=== PATIENT | male | born 1935 | race Caucasian/White ===

== ENCOUNTER 2017-09-16 17:54 | Inpatient (IN) | payer MEDICARE, BC ==
[~2017-09-16] VITALS: Ht 180.3 cm; Wt 72.7 kg
--- NOTE | 2017-09-16 18:10 | EKG ---
[address] [address] Test Date: 2017-09-16 Test Time: 18:05:51 Pat Name: RICHIE PORTER Department: Room: Gender: M Ultrasonographer: : 1935 Requested By: DIONNE FU Order Number: [id number] Reading MD: Measurements Intervals [place] Rate: 79 P: 42 FL: 180 QRS: 42 QRSD: 94 T: 62 QT: 364 QTc: 423 Interpretive Statements SINUS RHYTHM QRS(T) CONTOUR ABNORMALITY CONSIDER ANTEROSEPTAL MYOCARDIAL DAMAGE POSSIBLY ABNORMAL ECG RI6.01 No previous ECG available for comparison
[2017-09-16 18:42] LABS: BASO # 0.1 x10^3/uL (0.0-0.2); BASO % 1 % (0-3); EOS % 0 % (0-3); HEMATOCRIT 40.1 % (39.0-53.0); HEMOGLOBIN 13.3 g/dL (13.0-17.5); LYMPH # 1.2 x10^3/uL (1.0-4.8); LYMPH % 11 % (24-48); MEAN CORPUSCULAR HEMOGLOBIN 28 pg (25-35); MEAN CORPUSCULAR HGB CONC 33 g/dL (31-37); MEAN CORPUSCULAR VOLUME 85 fL (79-100); MONO # 0.7 x10^3/uL (0.0-1.1); MONO % 6 % (0-9); NEUT # 9.4 x10^3uL (1.8-7.7); NEUT % 83 % (31-73); PLATELET COUNT 298 x10^3/uL (140-400); RED BLOOD COUNT 4.74 x10^6/uL (4.30-5.70); RED CELL DISTRIBUTION WIDTH 15.9 % (11.5-14.5); WHITE BLOOD COUNT 11.4 x10^3/uL (4.0-11.0)
[2017-09-16 18:52] LABS: ALBUMIN 3.2 g/dL (3.4-5.0); ALBUMIN/GLOBULIN RATIO 0.7 (1.0-1.7); CALCIUM 10.1 mg/dL (8.5-10.1); CREATININE 2.5 mg/dL (0.7-1.3); GFR 24.8; MAGNESIUM 1.6 mg/dL (1.8-2.4); POTASSIUM 4.9 mmol/L (3.5-5.1); TOTAL BILIRUBIN 0.5 mg/dL (0.2-1.0)
--- NOTE | 2017-09-16 19:13 | PHYS DOC ---
Past History Past Medical History: CAD, Depression, Diabetes, Hypertension, Hypothyroid Past Surgical History: Other Alcohol Use: None Drug Use: None Adult General Chief Complaint Chief Complaint: PSYCH EVALUATION HPI HPI 82-year-old male with a history of severe depression which has required shelter placement now sent for evaluation of behavioral difficulties. By staff report patient will not get out of bed and is refusing to cooperate with his care. No recent illness or injuries. Patient has no specific complaints Review of Systems Review of Systems Constitutional: Denies fever or chills [] Eyes: Denies change in visual acuity, redness, or eye pain [] HENT: Denies nasal congestion or sore throat [] Respiratory: Denies cough or shortness of breath [] Cardiovascular: No additional information not addressed in HPI [] GI: Denies abdominal pain, nausea, vomiting, bloody stools or diarrhea [] : Denies dysuria or hematuria [] Musculoskeletal: Denies back pain or joint pain [] Integument: Denies rash or skin lesions [] Neurologic: Denies headache, focal weakness or sensory changes [] Endocrine: Denies polyuria or polydipsia [] All other systems were reviewed and found to be within normal limits, except as documented in this note. Allergies Allergies Allergies Coded Allergies Type Severity Reaction Last Updated Verified Sulfa (Sulfonamide Antibiotics) Allergy Unknown 09/16/17 Yes Physical Exam Physical Exam Chronically weak appearing elderly male in no acute distress. He is alert and communicative. Mucous membranes moist supple neck Constitutional: no acute distress, non-toxic appearance. [] HENT: Normocephalic, atraumatic, bilateral external ears normal, oropharynx moist, no oral exudates, nose normal. [] Eyes: PERRLA, EOMI, conjunctiva normal, no discharge. [] Neck: Normal range of motion, no tenderness, supple, no stridor. [] Cardiovascular:Heart rate regular rhythm, no murmur [] Lungs & Thorax: Bilateral breath sounds clear to auscultation [] Abdomen: Bowel sounds normal, soft, no tenderness, no masses, no pulsatile masses. [] Skin: Warm, dry, no erythema, no rash. [] Back: No tenderness, no CVA tenderness. [] Extremities: No tenderness, no cyanosis, no clubbing, ROM intact, no edema. [] Neurologic: Alert and oriented X 3, normal motor function the patient is generally weak without focal deficit, normal sensory function, no focal deficits noted. [] Psychologic: Flat affect and depressed mood Current Patient Data Vital Signs Vital Signs Date Time Temp Pulse Resp B/P (MAP) Pulse Ox O2 Delivery O2 Flow Rate FiO2 09/16/17 18:05 98.2 76 16 94 Room Air Lab Results Laboratory Tests Test 09/16/17 18:15 White Blood Count 11.4 x10^3/uL (4.0-11.0) H Red Blood Count 4.74 x10^6/uL (4.30-5.70) Hemoglobin 13.3 g/dL (13.0-17.5) Hematocrit 40.1 % (39.0-53.0) Mean Corpuscular Volume 85 fL (79-100) Mean Corpuscular Hemoglobin 28 pg (25-35) Mean Corpuscular Hemoglobin Concent 33 g/dL (31-37) Red Cell Distribution Width 15.9 % (11.5-14.5) H Platelet Count 298 x10^3/uL (140-400) Neutrophils (%) (Auto) 83 % (31-73) H Lymphocytes (%) (Auto) 11 % (24-48) L Monocytes (%) (Auto) 6 % (0-9) Eosinophils (%) (Auto) 0 % (0-3) Basophils (%) (Auto) 1 % (0-3) Neutrophils # (Auto) 9.4 x10^3uL (1.8-7.7) H Lymphocytes # (Auto) 1.2 x10^3/uL (1.0-4.8) Monocytes # (Auto) 0.7 x10^3/uL (0.0-1.1) Eosinophils # (Auto) 0.0 x10^3/uL (0.0-0.7) Basophils # (Auto) 0.1 x10^3/uL (0.0-0.2) Sodium Level 139 mmol/L (136-145) Potassium Level 4.9 mmol/L (3.5-5.1) Chloride Level 101 mmol/L (98-107) Carbon Dioxide Level 23 mmol/L (21-32) Anion Gap 15 (6-14) H Blood Urea Nitrogen 48 mg/dL (8-26) H Creatinine 2.5 mg/dL (0.7-1.3) H Estimated GFR (Cockcroft-Gault) 24.8 BUN/Creatinine Ratio 19 (6-20) Glucose Level 138 mg/dL (70-99) H Calcium Level 10.1 mg/dL (8.5-10.1) Magnesium Level 1.6 mg/dL (1.8-2.4) L Total Bilirubin 0.5 mg/dL (0.2-1.0) Aspartate Amino Transferase (AST) 40 U/L (15-37) H Alanine Aminotransferase (ALT) 39 U/L (16-63) Alkaline Phosphatase 89 U/L (46-116) Total Protein 8.0 g/dL (6.4-8.2) Albumin 3.2 g/dL (3.4-5.0) L Albumin/Globulin Ratio 0.7 (1.0-1.7) L EKG EKG Normal sinus rhythm at 79 normal axis no STEMI interpreted by me[] Radiology/Procedures Radiology/Procedures [] Course & Med Decision Making Course & Med Decision Making Pertinent Labs and Imaging studies reviewed. (See chart for details) Patient with behavioral difficulties and exacerbation of severe depression. Here for medical clearance for psychiatric senior behavioral health admission. His exam is unremarkable. Necessary labs pending. Patient generally weak and chronically debilitated but clinically stable. Creatinine 2.5 up from 1.2 on July 08 and 1.4 on September 09. Will admit patient for acute renal injury and hydration. Case discussed with Dr. Vanessa , he is aware the history and findings accepts the patient for inpatient admission his service. [] Dragon Disclaimer Dragon Disclaimer This electronic medical record was generated, in whole or in part, using a voice recognition dictation system. Departure Departure: Impression: Primary Impression: Severe depression Additional Impressions: Acute renal injury Dehydration Disposition: ADMITTED INPATIENT Admitting Physician: Elgin Vanessa, Other Condition: STABLE Referrals: KIKE SHARIF DO (PCP) Problem Qualifiers LADARIUS HUMPHREYS MD September 16, 2017 19:13
[2017-09-16 19:33] LABS: BILIRUBIN,URINE NEG (NEG); CLARITY,URINE CLEAR; COLOR,URINE YELLOW; GLUCOSE,URINE NEG (NEG); NITRITE,URINE NEG (NEG); UROBILINOGEN,URINE 0.2 mg/dL (0.2 mg/dL)
[2017-09-16 19:39] LABS: BACTERIA,URINE 0 /HPF (0-FEW); RBC,URINE 20-40 /HPF (0-2); SQUAMOUS EPITHELIAL CELL,UR FEW /LPF; WBC,URINE OCC /HPF (0-4)
[2017-09-16] MEDS ORDERED: IV NORMAL SALINE 1,000ML 1,000 ML IV ONE ×3 (20:45→21:00)
--- NOTE | 2017-09-16 23:25 | NUR ---
Pt admitted from ER to [facility] to room [address] [facility], accompanied by EMS and rn staff. Pt transferred from [facility] to bed x3 assist. Pt is a resident of [facility] in [place]. Pt has been having increased falls at assisted living facility and is now refused to get out of bed in fear of falling again and increased depression. Pt with healing abrasion to left liriano and varies dry scabs r/t falls. Pt was to go to [facility] for major depression but was found to have a elevated creat=2.5, plan is for gentle hydration tonight and follow up on labs in AM. VSS. Pt is A&Ox3, pleasant and interactive. Pt denies pain currently. Health history and home medications per MT, copies in chart. PT/OT ordered and CM consulted. SCD's per protocol for VTE. Bed in lowest position and alarm in place. Pt was given written information regarding hospital policies, unit procedures and contact persons. Call light within reach. Valuables were checked and logged and left in room with patient. Box lunch given.
[2017-09-16 23:36] VITALS: BP 135/70
[2017-09-17] MEDS ORDERED: MAGNESIUM HYDROXIDE 2,400 MG/30 ML ORAL.SUSP. PO PRN (02:15)
[2017-09-17] MEDS ORDERED: ACETAMINOPHEN 500 MG TABLET PO PRN (02:15)
[2017-09-17] MEDS ORDERED: METF10003 PO (02:46)
[2017-09-17] MEDS ORDERED: ACET500T68 PO (02:46)
[2017-09-17] MEDS ORDERED: CITA40TA12 PO (02:46)
[2017-09-17] MEDS ORDERED: ALFU10TA3 PO (02:46)
[2017-09-17] MEDS ORDERED: IBUP600T16 PO (02:46)
[2017-09-17] MEDS ORDERED: MAGN400O7 PO (02:46)
[2017-09-17] MEDS ORDERED: GLIM1TAB2 PO (02:46)
[2017-09-17] MEDS ORDERED: LOPE2TAB27 PO (02:46)
[2017-09-17] MEDS ORDERED: PSYL575P4 PO (02:46)
[2017-09-17] MEDS ORDERED: ATOR40TA59 PO (02:46)
[2017-09-17] MEDS ORDERED: HYDR28CR62 TP (02:46)
[2017-09-17] MEDS ORDERED: LISI10TA2 PO (02:46)
[2017-09-17] MEDS ORDERED: LEVO100T5 PO (02:46)
[2017-09-17] MEDS ORDERED: MULT1TAB52 PO (02:46)
[2017-09-17] MEDS ORDERED: FENO200C PO (02:46)
[2017-09-17] MEDS ORDERED: HYDROCORTISONE 1% TOPICAL CREAM 30GM TUBE. TP PRN (03:00)
[2017-09-17] MEDS ORDERED: LOPERAMIDE 2 MG CAPSULE PO PRN (03:00)
[2017-09-17 06:20] VITALS: BP 154/74
[2017-09-17] MEDS: LEVOTHYROXINE 100 MCG TABLET PO SCH (07:01)
[2017-09-17 07:12] LABS: ALBUMIN 2.7 g/dL (3.4-5.0); ALBUMIN/GLOBULIN RATIO 0.7 (1.0-1.7); CALCIUM 9.1 mg/dL (8.5-10.1); CREATININE 1.8 mg/dL (0.7-1.3); GFR 36.2; POTASSIUM 4.1 mmol/L (3.5-5.1); TOTAL BILIRUBIN 0.5 mg/dL (0.2-1.0); TOTAL PROTEIN 6.8 g/dL (6.4-8.2)
[2017-09-17 07:21] LABS: BASO % 0 % (0-3); EOS # 0.1 x10^3/uL (0.0-0.7); EOS % 2 % (0-3); HEMATOCRIT 34.5 % (39.0-53.0); HEMOGLOBIN 11.5 g/dL (13.0-17.5); LYMPH # 1.3 x10^3/uL (1.0-4.8); LYMPH % 18 % (24-48); MEAN CORPUSCULAR HEMOGLOBIN 28 pg (25-35); MEAN CORPUSCULAR HGB CONC 33 g/dL (31-37); MEAN CORPUSCULAR VOLUME 85 fL (79-100); MONO # 0.5 x10^3/uL (0.0-1.1); MONO % 7 % (0-9); NEUT # 5.4 x10^3uL (1.8-7.7); NEUT % 73 % (31-73); PLATELET COUNT 262 x10^3/uL (140-400); RED BLOOD COUNT 4.07 x10^6/uL (4.30-5.70); RED CELL DISTRIBUTION WIDTH 15.6 % (11.5-14.5); WHITE BLOOD COUNT 7.4 x10^3/uL (4.0-11.0)
[2017-09-17] MEDS: PSYLLIUM SEED (WITH SUGAR) PACKET. PO SCH ×2 (08:00→09:33)
[2017-09-17] MEDS ORDERED: IBUPROFEN 600 MG PO SCH (09:00)
[2017-09-17] MEDS ORDERED: LISINOPRIL 10 MG TABLET PO SCH (09:00)
[2017-09-17] MEDS: GLIMEPIRIDE 2 MG TABLET PO SCH (09:33)
[2017-09-17] MEDS: CITALOPRAM 20 MG TABLET. PO SCH (09:34)
[2017-09-17] MEDS: MULTIVITAMIN with MINERAL TABLET. PO SCH (09:35)
[2017-09-17] MEDS: FENOFIBRATE NANOCRYSTALLIZED 145 MG TABLET PO SCH (09:35)
[2017-09-17 12:24] VITALS: BP 113/66
[2017-09-17] MEDS: IV NORMAL SALINE 1,000ML 1,000 ML IV SCH ×2 (15:04→20:50)
--- NOTE | 2017-09-17 17:25 | HP ---
ADMIT DATE: 09/16/2017 HISTORY OF PRESENT ILLNESS: The patient is an 82-year-old male patient, a resident at [facility] ER, who apparently has severe depression, refusing to get up to the restroom, has lost about 25 pounds in 9 months, constantly worrying about falling. An outpatient psychiatric intervention was attempted with Keyla without much improvement and he was basically brought to the Emergency Room for medical clearance before admitting him to [facility]. Unfortunately, he was found to have acute kidney injury. His creatinine was 2.5 and it was only 1.2 about a month ago and therefore, he was admitted to [address] [place] [address] for rehydrating him before transferring him upstairs for inpatient psychiatric stabilization. The patient himself does not really give a lot of information. PAST MEDICAL HISTORY: His past medical history is significant for type 2 diabetes, chronic kidney disease, chronic constipation, benign prostatic hypertrophy, hyperlipidemia, hypothyroidism, and hypertension. PAST SURGICAL HISTORY: Unremarkable. SOCIAL HISTORY: He is . His about 10 years ago. He has been living in an assisted living for about 8 years, according to him. He has 2 daughters and grandchildren and grand grandchildren. 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 He does not smoke, drink alcohol or use any recreational drugs. ALLERGIES: HE IS ALLERGIC TO SULFA DRUGS. MEDICATIONS: He is currently on following medications: He is on alfuzosin 10 mg once a day, fenofibrate 200 mg daily, atorvastatin calcium 40 mg at bedtime, lisinopril 10 mg once a day, ibuprofen 600 mg 3 times a day, acetaminophen 600 mg every 6 hours, citalopram hydrobromide for Celexa 40 mg daily, loperamide 2 mg 4 times a day as needed, magnesium hydroxide for Milk of Magnesia 30 mL p.o. daily p.r.n. for constipation, psyllium seed with sugar for Metamucil powder 5 grams p.o. daily with breakfast, metformin 1000 mg twice a day and glimepiride half mg once a day, levothyroxine sodium 100 mcg once a day, hydrocortisone/aloe vera ____ cream apply topically twice a day for eczema, dry skin, and multivitamin 1 tablet once a day. REVIEW OF SYSTEMS: As per history of present illness. PHYSICAL EXAMINATION: GENERAL: On arrival to the Emergency Room, he looked well and was clearly in no apparent respiratory distress, pale, cachectic, but no jaundice, cyanosis, or thyromegaly. No jugular venous distension. No lower limb edema. VITAL SIGNS: His heart rate was 76, blood pressure was 125/65, temperature was 98.2, respiratory rate was 16, and oxygen saturation was 94%. HEAD, EYES, EARS, NOSE AND THROAT: Showed normocephalic, atraumatic. NECK: Supple. HEART: Showed normal first and second heart sounds with no gallop, rub or murmur. CHEST: Clear to auscultation. No crepitation or rhonchi. ABDOMEN: Distended, soft, nontender. No guarding or rigidity. No organomegaly. Hernial orifice is intact. Bowel sounds normal. NEUROLOGIC: He is awake, alert, responding appropriately. His cranial nerves are intact. EXTREMITIES: He moves extremities without difficulty, although he is mostly bedbound, chair bound. Apparently, he has morbid fear of walking or falling. LABORATORY DATA: While in the Emergency Room, he has lab work done, which showed that his white cell count was 11,400, hemoglobin 13.3, hematocrit 40, MCV 85 and platelet count 298,000. His chemistry showed a serum sodium 139, potassium 4.9, chloride 101, bicarbonate 23, anion gap of 15, BUN 48, creatinine 2.5, estimated GFR was 24 mL per minute. His glucose was 138, calcium was 10.1, magnesium was 1.6. Total bilirubin, AST, ALT, alkaline phosphatase were normal. Total protein was 8, albumin was 3.2. Urinalysis showed the urine was yellow, clear with the pH of 5, specific gravity 1.020. There is small amount of protein, negative for glucose and ketones, large amount of blood, negative for nitrite and bilirubin, and negative leukocyte esterase. There were 20-40 RBCs, occasional WBCs, and no bacteria. IMPRESSION AND PLAN: So, in summary, this is an 82-year-old male patient, a resident in assisted living at [facility] ER, who was brought to the Emergency Room for medical clearance before he was admitted to [facility] on account of severe depression, refusing to get up to use the restroom, has lost about 25 pounds in 9 months, constantly worrying about falling and these symptoms started about 6 months ago, has failed outpatient psychiatric stabilization and he was started on Celexa and therefore he was evaluated in the Emergency Room; however, he was found to have [id number] kidney injury. He was clearly markedly dehydrated. He has also mild leukocytosis, hypomagnesemia, and hypercalcemia. Therefore, a decision was made to admit him to [address] [place] [address] to treat his normal kidney function first. Once stabilized medically, he would be transferred upstairs to [facility] for inpatient psychiatric stabilization. CAREN ROMO MD DR: MAYA/maxx JOB#: [id number] / [id number]
[2017-09-17 18:05] VITALS: BP 121/71
--- NOTE | 2017-09-17 18:55 | PN ---
DATE: 09/17/2017 SUBJECTIVE: The patient has been sitting comfortably in his chair in no apparent distress. On questioning him, he denied any complaint; however, the nursing staff stated he continued to be extremely worried about standing or walking. We did consult physical and occupational therapy to evaluate him as his kidney function is abnormal. His metformin and ibuprofen were held last night; however, his lisinopril was continued. PHYSICAL EXAMINATION: GENERAL: When I saw him this afternoon, he looked well and was clearly in no apparent distress, was pale, but no jaundice, cyanosis, or thyromegaly. No jugular venous distension. No limb edema. VITAL SIGNS: Heart rate was 61, blood pressure was 113/66, temperature was 97.6, respiratory rate 22 and oxygen saturation was 94%. HEAD, EARS, NOSE AND THROAT: Normocephalic, atraumatic. NECK: Supple. HEART: Showed normal first and second heart sounds with no gallop, rub or murmur. CHEST: Clear to auscultation. No crepitation or rhonchi. ABDOMEN: Distended, soft, nontender. No guarding or rigidity. No organomegaly. Hernial orifices intact. Bowel sounds normal. NEUROLOGIC: He was demented, but without any obvious lateralizing sign. All his cranial nerves are intact. He moves extremities without difficulty. He has marked muscle wasting and weakness. His intake over the last 24 hours was 1100, no output was recorded. LABORATORY DATA: As of this morning showed a serum sodium 140, potassium 4.1, chloride 104, bicarbonate 24, anion gap of 12, BUN 47, creatinine 1.8, estimated GFR was 36 mL per minute. His glucose was 93, calcium was 9.1. Total bilirubin, AST, ALT, alkaline phosphatase were normal. Total protein was 6.8, albumin was 2.7. His white cell count was 7400, hemoglobin 11.5, hematocrit 34.5, MCV 85 and platelet count 262,000. ASSESSMENT: This is an 82-year-old male patient, resident in assisted living with severe depression with loss, was found to be dehydrated with: 1. [id number] kidney injury, hypomagnesemia, hypercalcemia. He has also had type 2 diabetes, hypertension, hypothyroidism. PLAN: To continue the IV fluid today and overnight and hopefully repeat his labs tomorrow and ____ kidney function is back to baseline on his most recent lab work available showed his creatinine was 1.2 mg/dL on 07/08/2017. CAREN ROMO MD DR: MAYA/maxx JOB#: [id number] / [id number]
[2017-09-17 19:40] VITALS: BP 130/70
--- NOTE | 2017-09-17 20:12 | PDOC ---
Exam Note: Percy Note: Please also refer to the separate dictated note~for this date of service dictated separately.~Patient seen individually. Discussed the patient with Nursing staff reviewed the chart.~Reviewed interim history and current functioning. Reviewed vital signs,~Labs/ Radiology~and current medications noted below. Continue current treatment with the changes noted in the dictated addendum note Assessment: Vital Signs: Vital Signs Date Time Temp Pulse Resp B/P (MAP) Pulse Ox O2 Delivery O2 Flow Rate FiO2 09/17/17 19:40 98.1 57 16 130/70 (90) 93 Room Air I&O Intake and Output 09/17/17 07:00 Intake Total 1099 ml Balance 1099 ml Intake Oral 360 ml IV Total 739 ml # Voids 3 Labs: Laboratory Tests Test 09/17/17 00:40 09/17/17 06:31 09/17/17 07:47 09/17/17 12:00 Nasal Screen MRSA (PCR) Negative (Negative) White Blood Count 7.4 x10^3/uL (4.0-11.0) Red Blood Count 4.07 x10^6/uL (4.30-5.70) L Hemoglobin 11.5 g/dL (13.0-17.5) L Hematocrit 34.5 % (39.0-53.0) L Mean Corpuscular Volume 85 fL (79-100) Mean Corpuscular Hemoglobin 28 pg (25-35) Mean Corpuscular Hemoglobin Concent 33 g/dL (31-37) Red Cell Distribution Width 15.6 % (11.5-14.5) H Platelet Count 262 x10^3/uL (140-400) Neutrophils (%) (Auto) 73 % (31-73) Lymphocytes (%) (Auto) 18 % (24-48) L Monocytes (%) (Auto) 7 % (0-9) Eosinophils (%) (Auto) 2 % (0-3) Basophils (%) (Auto) 0 % (0-3) Neutrophils # (Auto) 5.4 x10^3uL (1.8-7.7) Lymphocytes # (Auto) 1.3 x10^3/uL (1.0-4.8) Monocytes # (Auto) 0.5 x10^3/uL (0.0-1.1) Eosinophils # (Auto) 0.1 x10^3/uL (0.0-0.7) Basophils # (Auto) 0.0 x10^3/uL (0.0-0.2) Sodium Level 140 mmol/L (136-145) Potassium Level 4.1 mmol/L (3.5-5.1) Chloride Level 104 mmol/L (98-107) Carbon Dioxide Level 24 mmol/L (21-32) Anion Gap 12 (6-14) Blood Urea Nitrogen 47 mg/dL (8-26) H Creatinine 1.8 mg/dL (0.7-1.3) H Estimated GFR (Cockcroft-Gault) 36.2 BUN/Creatinine Ratio 26 (6-20) H Glucose Level 93 mg/dL (70-99) Calcium Level 9.1 mg/dL (8.5-10.1) Total Bilirubin 0.5 mg/dL (0.2-1.0) Aspartate Amino Transferase (AST) 38 U/L (15-37) H Alanine Aminotransferase (ALT) 30 U/L (16-63) Alkaline Phosphatase 76 U/L (46-116) Total Protein 6.8 g/dL (6.4-8.2) Albumin 2.7 g/dL (3.4-5.0) L Albumin/Globulin Ratio 0.7 (1.0-1.7) L Glucose (Fingerstick) 99 mg/dL (70-99) 87 mg/dL (70-99) Test 09/17/17 16:31 09/17/17 19:43 Glucose (Fingerstick) 133 mg/dL (70-99) H 86 mg/dL (70-99) Current Medications: Meds: Current Medications Sodium Chloride 1,000 ml @ 150 mls/hr 1X ONCE IV Last administered on at 23:47; Start 09/16/17 at 20:45; Stop 09/17/17 at 03:24; Status DC Sodium Chloride 1,000 ml @ 1,000 mls/hr 1X ONCE IV Last administered on at 20:15; Start 09/16/17 at 21:00; Stop 09/16/17 at 21:59; Status DC Sodium Chloride 1,000 ml @ 1,000 mls/hr 1X ONCE IV ; Start 09/16/17 at 21:00; Stop 09/16/17 at 21:00; Status DC Levothyroxine Sodium (Synthroid) 100 mcg DAILY07 PO Last administered on at 07:01; Start 09/17/17 at 07:00 Lisinopril (Prinivil) 10 mg DAILY PO Last administered on 09/17/17at 09:35; Start 09/17/17 at 09:00; Stop 09/17/17 at 16:21; Status DC Magnesium Hydroxide (Milk Of Magnesia) 400 mg PRN DAILY PRN PO CONSTIPATION; Start 09/17/17 at 02:15; Stop 09/17/17 at 02:58; Status DC Acetaminophen (Tylenol) 1,000 mg PRN Q6HRS PRN PO PAIN; Start 09/17/17 at 02:15 Tamsulosin HCl (Flomax) 0.4 mg QHS PO ; Start 09/17/17 at 21:00 Atorvastatin Calcium (Lipitor) 40 mg QHS PO ; Start 09/17/17 at 21:00 Citalopram Hydrobromide (CeleXA) 40 mg DAILY PO Last administered on 09/17/17at 09:34; Start 09/17/17 at 09:00 Fenofibrate (Tricor) 145 mg DAILY PO Last administered on 09/17/17at 09:35; Start 09/17/17 at 09:00 Glimepiride (Amaryl) 0.5 mg DAILY PO Last administered on 09/17/17at 09:33; Start 09/17/17 at 09:00 Hydrocortisone (Cortaid) 1 eron PRN BID PRN TP ITCHING; Start 09/17/17 at 03:00 Non-Formulary Medication (Ibuprofen ) 600 mg TID PO ; Start 09/17/17 at 09:00; Status UNV Loperamide HCl (Imodium) 2 mg PRN QID PRN PO DIARRHEA; Start 09/17/17 at 03:00 Non-Formulary Medication (Metformin Hcl ) 1,000 mg BIDWMEALS PO ; Start at 08:00; Status UNV Multivitamins/ Calcium (Thera-M Plus) 1 tab DAILY PO Last administered on at 09:35; Start 09/17/17 at 09:00 Psyllium Hydrophilic Mucilloid (Metamucil) 1 pkt DAILYWBKFT PO ; Start 09/17/17 at 08:00 Sodium Chloride 1,000 ml @ 150 mls/hr Q6H40M IV Last administered on at 15:04; Start 09/17/17 at 14:45 Active Scripts Active Reported Multivitamins (Multivitamin) 1 Each Tablet 1 Tab PO DAILY LAST DOSE GIVEN: DATE: TIME: NEXT DOSE DUE: DATE: TIME: Metamucil Powder (Psyllium Seed (with Sugar)) 575 Gm Powder 5 Gm PO DAILYWBKFT LAST DOSE GIVEN: DATE: TIME: NEXT DOSE DUE: DATE: TIME: Milk Of Magnesia (Magnesium Hydroxide) 400 Mg/5 Ml Oral.susp 5 Ml PO PRN DAILY PRN LAST DOSE GIVEN: DATE: TIME: NEXT DOSE DUE: DATE: TIME: Loperamide (Loperamide Hcl) 2 Mg Tablet 2 Mg PO PRN QID PRN LAST DOSE GIVEN: DATE: TIME: NEXT DOSE DUE: DATE: TIME: Glimepiride 1 Mg Tablet 0.5 Mg PO DAILY LAST DOSE GIVEN: DATE: TIME: NEXT DOSE DUE: DATE: TIME: Cortizone-10 1% Creme (Hydrocortisone/Aloe Vera) 28 Gm Cream..g. 1 Eron TP BID PRN LAST DOSE GIVEN: DATE: TIME: NEXT DOSE DUE: DATE: TIME: Ibuprofen 600 Mg Tablet 600 Mg PO TID LAST DOSE GIVEN: DATE: TIME: NEXT DOSE DUE: DATE: TIME: Celexa (Citalopram Hydrobromide) 40 Mg Tablet 40 Mg PO DAILY LAST DOSE GIVEN: DATE: TIME: NEXT DOSE DUE: DATE: TIME: Alfuzosin Hcl 10 Mg Tab.er.24h 10 Mg PO DAILY LAST DOSE GIVEN: DATE: TIME: NEXT DOSE DUE: DATE: TIME: Lisinopril 10 Mg Tablet 10 Mg PO DAILY LAST DOSE GIVEN: DATE: TIME: NEXT DOSE DUE: DATE: TIME: Metformin Hcl 1,000 Mg Tablet 1,000 Mg PO BIDWMEALS LAST DOSE GIVEN: DATE: TIME: NEXT DOSE DUE: DATE: TIME: Levothyroxine Sodium 100 Mcg Tablet 100 Mcg PO DAILYAC LAST DOSE GIVEN: DATE: TIME: NEXT DOSE DUE: DATE: TIME: Fenofibrate (Fenofibrate,Micronized) 200 Mg Capsule 200 Mg PO DAILY08 LAST DOSE GIVEN: DATE: TIME: NEXT DOSE DUE: DATE: TIME: Atorvastatin Calcium 40 Mg Tablet 40 Mg PO HS LAST DOSE GIVEN: DATE: TIME: NEXT DOSE DUE: DATE: TIME: Acetaminophen 500 Mg Tablet 500-1,000 Mg PO PRN Q6HRS PRN LAST DOSE GIVEN: DATE: TIME: NEXT DOSE DUE: DATE: TIME: I have reviewed the current psychotropics carefully including drug interactions. Risk benefit ratio favors no change other than as noted in my dictated progress note. Diagnosis: Problems: (1) Dehydration (2) Severe depression (3) Acute renal injury (4) Anxiety disorder (5) Major depressive disorder, recurrent episode (6) Impulse control disorder (7) Mild cognitive impairment YASMIN DEXTER MD September 17, 2017 20:12
[2017-09-17] MEDS ORDERED: ATORVASTATIN CALCIUM 20 MG TABLET PO SCH (21:00)
[2017-09-17] MEDS ORDERED: TAMSULOSIN 0.4 MG CAP.ER.24H. PO SCH (21:00)
[2017-09-17 23:07] VITALS: BP 122/65
[2017-09-18] MEDS: IV NORMAL SALINE 1,000ML 1,000 ML IV SCH ×2 (04:39→10:45)
[2017-09-18 04:57] VITALS: BP 133/79
[2017-09-18] MEDS: LEVOTHYROXINE 100 MCG TABLET PO SCH (06:04)
[2017-09-18 06:54] LABS: CALCIUM 8.8 mg/dL (8.5-10.1); CREATININE 1.2 mg/dL (0.7-1.3); GFR 57.8
[2017-09-18] MEDS: PSYLLIUM SEED (WITH SUGAR) PACKET. PO SCH (08:00)
[2017-09-18] MEDS: FENOFIBRATE NANOCRYSTALLIZED 145 MG TABLET PO SCH (09:19)
[2017-09-18] MEDS: MULTIVITAMIN with MINERAL TABLET. PO SCH (09:19)
[2017-09-18] MEDS: CITALOPRAM 20 MG TABLET. PO SCH (09:19)
[2017-09-18] MEDS: GLIMEPIRIDE 2 MG TABLET PO SCH (09:19)
[2017-09-18 10:43] VITALS: BP 128/65
--- NOTE | 2017-09-18 14:33 | NUR ---
Pt ambulated short distance with PT/OT to the hallway then placed in the shower chair. Pt complained of fearfulness of falling. Pt reassured several times he is safe. Pt given shower, oral care given and pt transferred back to bed with 2 person assist. Will continue to monitor.
[2017-09-18 16:00] VITALS: BP 110/60
--- NOTE | 2017-09-18 17:55 | NUR ---
Report called to Frederick on [facility]. Pt up with 2 assist to wheelchair.
--- NOTE | 2017-09-18 18:01 | NUR ---
Frederick was informed in report that pt blood sugar was down to 54 at dinner time with no symptoms. Pt ate all of meal
--- NOTE | 2017-09-18 21:00 | DS ---
DATE OF DISCHARGE: 09/18/2017 HOSPITAL COURSE: The patient is an 82-year-old male patient, a resident at an assisted living facility, who was seen in the Emergency Room with a view of admitting him for medical clearance, to be admitted to [facility] on account of severe depression, refusing to get up to the bathroom, he lost about 25 pounds in 9 months. He is constantly worrying about falling and an outpatient psychiatric intervention was attempted with Keyla without much improvement; however, while in the Emergency Room, he was found to have acute kidney injury. His creatinine was 2.5 and his baseline about a month ago was only 1.2. He was also found to have hypercalcemia and hypomagnesemia, and therefore, he was started on IV fluid. I discontinued his lisinopril and the patient did very well. His creatinine came down nicely from 2.5-1.2 his baseline. His serum magnesium and calcium are normalized also and it was felt that the patient is medically stable to be transferred to [facility] for inpatient psychiatric stabilization. I did discontinue his lisinopril altogether and wrote an order to start him on amlodipine if need be if his systolic blood pressure is consistently more than 140 mmHg. PHYSICAL EXAMINATION: GENERAL: When I saw him this afternoon, he looked well and was clearly in no apparent respiratory distress, pale, but no jaundice, cyanosis or thyromegaly. No jugular venous distention. No limb edema. VITAL SIGNS: His heart rate was 82, blood pressure was 128/65, temperature was 98.6, respiratory rate was 20 and oxygen saturation was 97%. HEAD, EYES, EARS, NOSE AND THROAT: Normocephalic, atraumatic. NECK: Supple. HEART: Showed normal first and second heart sounds. No gallop, rub or murmur. CHEST: Clear to auscultation. No crepitation or rhonchi. ABDOMEN: Distended, soft, nontender. No guarding or rigidity. No organomegaly. All hernial orifice intact. Bowel sounds normal. NEUROLOGIC: He is awake, alert, responding appropriately. Cranial nerves intact. He moves extremities without difficulty; however, he is mostly bedbound. He is very unsteady and very fearful to walk. His intake over the last 24 hours was 3000, output was 150. LABORATORY DATA: This morning showed a serum sodium 137, potassium 4, chloride 105, bicarbonate 24, anion gap of 8, BUN 28, creatinine 1.2. Estimated GFR was 58 mL per minute. His glucose was 86, calcium was 8.8. TSH was 0.80. His white cell count was 7400, hemoglobin 11.5, hematocrit 35, MCV 85 and platelet count 262,000 with normal manual differential. DISCHARGE MEDICATIONS: He was transferred to [facility] to continue on atorvastatin, calcium 40 mg at bedtime, Flomax 0.4 mg at bedtime, multivitamin with calcium 1 tablet once a day, glimepiride 0.5 mg once a day, fenofibrate 145 mg once a day, citalopram hydrobromide 40 mg daily, psyllium for Metamucil 1 packet daily, levothyroxine 100 mcg once a day, loperamide 2 mg 4 times a day, hydrocortisone application twice a day, Tylenol 1000 mg every 6 hours. FINAL DISCHARGE DIAGNOSES: Acute kidney injury, resolved. His creatinine came down from 2.5-1.2 mg, hypomagnesemia, resolved, hypercalcemia resolved. Other medical problems include hypertension, hypothyroidism, hyperlipidemia, benign prostatic hypertrophy, type 2 diabetes. CAREN ROMO MD DR: MAYA/maxx JOB#: [id number] / [id number]
--- NOTE | 2017-09-19 00:24 | CONS ---
DATE OF CONSULTATION: 09/17/2017 This note covers the elements not covered in my initial note, 09/17/2017. The patient was seen individually evening of 09/17/2017. Discussed with the nursing staff, reviewed current and past records. IDENTIFYING DATA: The patient is an 82-year-old male seen in bed [address], [address] [place] [address], for a psychiatric consult requested by Dr. Vanessa after the patient was initially referred to us from the Assisted Living on account of severe depression, worsening at the [facility]. He was refusing to use the restroom, refusing to eat, lost 25 pounds in the past 9 months. He appeared hopeless, helpless, worthless, had failed outpatient psychiatric interventions. We did have accepted him for inpatient psychiatric stabilization on the Geriatric Psychiatry Unit, but he presented to the ER, was found to have acute kidney injury with a creatinine of 2.5, elevated from prior creatinine of 1.2, and he was admitted on [address] [place] [address] for Medical/Surgical unit for rehydration. I have been asked to see him from a psychiatric standpoint given his marked depression, weight loss, failure for outpatient psychiatric interventions. CHIEF COMPLAINT: "I have not been feeling hungry. Nothing matters." HISTORY OF PRESENT ILLNESS: The patient relates worsening symptoms of depression, feeling hopeless, helpless, worthless much worse since the of his . 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 for about 8 years. He has gradually gotten more depressed. Much of this is worsened in the recent past with weight loss, feeling helpless, hopeless, worthless, no interest in activities, apathy, and anhedonia, all of which failed outpatient psychiatric interventions. No clear symptoms of bipolar disorder. PAST PSYCHIATRIC HISTORY: As above. MEDICAL HISTORY: Diabetes mellitus, chronic kidney disease, chronic constipation, BPH, hyperlipidemia, hypothyroidism, and hypertension. ALLERGIES: SULFA. CURRENT PSYCHOTROPICS: MRAD was reviewed. FAMILY HISTORY: Noncontributory. SOCIAL HISTORY: No alcohol or drug abuse history is noted. MENTAL STATUS EXAMINATION: The patient was seen individually evening of 09/17/2017. He is oriented to himself, date and situation. Speech has some latency, coherent. Abstraction fair, computation somewhat impaired, language function intact. Mood is depressed. Affect is mood congruent. Denies active suicidal ideation, somewhat ruminative. Attention span short. Language function intact. LABORATORY DATA: Reviewed. IMPRESSION: Major depressive disorder, recurrent, severe; anxiety disorder, unspecified; cognitive disorder, unspecified. Rest as above. PLAN: From a psychiatric standpoint, would not recommend any change until he is medically stabilized and we can reassess. We may consider having him come to the Geriatric Psychiatry Unit once he is medically stable. Dr. Vanessa, thank you for the opportunity to participate in your patient's care. We will follow with you. YASMIN DEXTER MD DR: NISREEN/maxx JOB#: [id number] / [id number]
[2017-09-19 02:07] LABS: HEMOGLOBIN A1C 6.4 % (4.8-5.6)
== END 2017-09-18 18:05 | DRG 683 ==
LOC: ER 17:54 → 1 SOUTH 21:48
PROVIDERS: ADMIT Internal Medicine; ATTEND Internal Medicine
DX: N17.0 Acute kidney failure with tubular necrosis (principal); F33.9 Major depressive disorder, recurrent, unspecified; E11.22 Type 2 diabetes mellitus with diabetic chronic kidney disease; E86.0 Dehydration; E83.52 Hypercalcemia; E03.9 Hypothyroidism, unspecified; E83.42 Hypomagnesemia; I25.10 Atherosclerotic heart disease of native coronary artery without angina pectoris; Z88.2 Allergy status to sulfonamides; N40.0 Benign prostatic hyperplasia without lower urinary tract symptoms; I12.9 Hypertensive chronic kidney disease with stage 1 through stage 4 chronic kidney disease, or unspecified chronic kidney disease; N18.9 Chronic kidney disease, unspecified; E78.5 Hyperlipidemia, unspecified; K59.09 Other constipation; D72.829 Elevated white blood cell count, unspecified; F41.9 Anxiety disorder, unspecified; F09 Unspecified mental disorder due to known physiological condition
CPT/HCPCS: 36415; 80048; 80053; 81001; 82947; 83036; 83735; 84443; 85025; 87641; 93005; 96360; 96361; P9612; 99285-25; J7030

== ENCOUNTER 2017-09-18 18:05 | Inpatient (IN) | payer MEDICARE, BC ==
[~2017-09-18] VITALS: Ht 180.3 cm; Wt 73.6 kg
[~2017-09-18 18:05] MED LIST: ACET500T68 PO; ALFU10TA3 PO; ATOR40TA59 PO; CITA40TA12 PO; FENO200C PO; GLIM1TAB2 PO; HYDR28CR62 TP; IBUP600T16 PO; LEVO100T5 PO; LISI10TA2 PO; LOPE2TAB27 PO; MAGN400O7 PO; METF10003 PO; MULT1TAB52 PO; PSYL575P4 PO
[2017-09-18 18:27] VITALS: BP 134/75
[2017-09-18] MEDS ORDERED: MAG HYDROX/AL HYDROX/SIMETH 30 ML ORAL.SUSP PO PRN (19:15)
[2017-09-18] MEDS ORDERED: MAGNESIUM HYDROXIDE 2,400 MG/30 ML ORAL.SUSP. PO PRN (19:15)
[2017-09-18] MEDS ORDERED: METHYL SALICYLATE/MENTHOL TOPICAL OINTMENT 29GM TUBE. TP PRN (19:15)
[2017-09-18] MEDS ORDERED: ACETAMINOPHEN 325 MG TABLET PO PRN (19:15)
--- NOTE | 2017-09-18 19:25 | HP ---
ADMIT DATE: 09/18/2017 PSYCHIATRIC ADMISSION HISTORY/EVALUATION This note covers elements not covered in my initial note of 09/18. IDENTIFYING DATA: The patient is an 82-year-old male referred initially to us from [facility] and he was referred to us on account of worsening symptoms of depression, refusing to eat and he lost 25-pound weight in the past 9 months. He was having anxiety and panic attacks with fear of falling, had failed outpatient psychiatric interventions with passive suicidal ideation. He was referred for inpatient psychiatric stabilization. He arrived in the ER at [facility] and was found to have an acute kidney injury, admitted to [facility] Medical/Surgical floor per Dr. Vanessa for rehydration and once he was stabilized, he was then referred to us for inpatient psychiatric stabilization. CHIEF COMPLAINT: "I have not been hungry." HISTORY OF PRESENT ILLNESS: The patient has a history of worsening symptoms of depression for the last several months with significant drop in his appetite, weight, increased anxiety, panic attacks, perceptions of derealization and depersonalization. No homicidal ideation. No clear symptoms of bipolar disorder. PAST PSYCHIATRIC HISTORY: Positive for depression. PAST MEDICAL HISTORY: Coronary artery disease, diabetes mellitus, hypertension, hypothyroidism, chronic constipation, BPH, weight loss as noted, OCD, neuropathy, hyperlipidemia, osteoarthritis, diverticulitis. Accu-Cheks a.c. and at bedtime. ALLERGIES: SULFA. CODE STATUS: DNR. CURRENT PSYCHOTROPICS: EMRAD was reviewed. FAMILY HISTORY: Noncontributory. 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 He is . No alcohol or drug abuse history. MENTAL STATUS EXAMINATION: The patient seen individually. He is oriented to himself and situation. Speech is coherent, has some latency. Abstraction fair, computation impaired. Mood and affect depressed, anxious. No clear psychotic symptoms. Attention span short. Denies active suicidal ideation. IMPRESSION: Major depressive disorder, recurrent, severe; anxiety disorder, unspecified. Rest of the diagnoses as noted above. PLAN: Admit to Geropsychiatry Unit at [facility]. I will see the patient daily individually from a psychiatric standpoint, make changes in psychotropics depending on baseline assessment. Medical followup per Dr. Vanessa/Dr Webber. MAN Сергей DEXTER MD DR: Cordelia JOB#: [id number] / [id number]
[2017-09-18] MEDS ORDERED: LOPERAMIDE 2 MG CAPSULE PO PRN (20:00)
[2017-09-18] MEDS ORDERED: HYDROCORTISONE 1% TOPICAL CREAM 30GM TUBE. TP PRN (20:00)
[2017-09-18] MEDS: ATORVASTATIN CALCIUM 20 MG TABLET PO SCH (21:17)
[2017-09-18] MEDS: TAMSULOSIN 0.4 MG CAP.ER.24H. PO SCH (21:17)
--- NOTE | 2017-09-18 22:12 | PDOC ---
Exam Note: Percy Note: Please also refer to the separate dictated note~for this date of service dictated separately.~Patient seen individually. Discussed the patient with Nursing staff reviewed the chart.~Reviewed interim history and current functioning. Reviewed vital signs,~Labs/ Radiology~and current medications noted below. Continue current treatment with the changes noted in the dictated addendum note Assessment: Vital Signs: Vital Signs Date Time Temp Pulse Resp B/P (MAP) Pulse Ox O2 Delivery O2 Flow Rate FiO2 09/18/17 18:27 98.3 63 20 134/75 (94) 100 Labs: Laboratory Tests Test 09/18/17 09:17 Magnesium Level 1.3 mg/dL (1.8-2.4) L Current Medications: Meds: Current Medications Levothyroxine Sodium (Synthroid) 100 mcg DAILYAC PO ; Start 09/19/17 at 07:30 Acetaminophen (Tylenol) 1,000 mg PRN Q6HRS PRN PO PAIN / TEMP; Start 09/18/17 at 20:00 Atorvastatin Calcium (Lipitor) 40 mg QHS PO Last administered on 09/18/17at 21: 17; Start 09/18/17 at 21:00 Citalopram Hydrobromide (CeleXA) 40 mg DAILY PO ; Start 09/19/17 at 09:00 Fenofibrate (Tricor) 145 mg DAILY PO ; Start 09/19/17 at 09:00 Glimepiride (Amaryl) 0.5 mg DAILY PO ; Start 09/19/17 at 09:00 Hydrocortisone (Cortaid) 1 eron PRN BID PRN TP ECZEMA/DRY SKIN; Start 09/18/17 at 20:00 Loperamide HCl (Imodium) 2 mg PRN QID PRN PO DIARRHEA; Start 09/18/17 at 20:00 Multivitamins/ Calcium (Thera-M Plus) 1 tab DAILY PO ; Start 09/19/17 at 09:00 Psyllium Hydrophilic Mucilloid (Metamucil) 1 pkt DAILYWBKFT PO ; Start 09/19/17 at 08:00 Tamsulosin HCl (Flomax) 0.4 mg QHS PO Last administered on 09/18/17at 21:17; Start 09/18/17 at 21:00 Acetaminophen (Tylenol) 650 mg PRN Q6HRS PRN PO PAIN / TEMP; Start 09/18/17 at 19:15; Status UNV Multi-Ingredient Ointment (Analgesic [place]) 1 eron PRN QID PRN TP MUSCLE PAIN; Start 09/18/17 at 19:15 Al Hydroxide/Mg Hydroxide (Mylanta Plus Xs) 15 ml PRN AFTMEALHC PRN PO DYSPEPSIA; Start 09/18/17 at 19:15 Magnesium Hydroxide (Milk Of Magnesia) 2,400 mg PRN QHS PRN PO CONSTIPATION; Start 09/18/17 at 19:15 Active Scripts Active Reported Multivitamins (Multivitamin) 1 Each Tablet 1 Tab PO DAILY LAST DOSE GIVEN: DATE: TIME: NEXT DOSE DUE: DATE: TIME: Metamucil Powder (Psyllium Seed (with Sugar)) 575 Gm Powder 5 Gm PO DAILYWBKFT LAST DOSE GIVEN: DATE: TIME: NEXT DOSE DUE: DATE: TIME: Loperamide (Loperamide Hcl) 2 Mg Tablet 2 Mg PO PRN QID PRN LAST DOSE GIVEN: DATE: TIME: NEXT DOSE DUE: DATE: TIME: Glimepiride 1 Mg Tablet 0.5 Mg PO DAILY LAST DOSE GIVEN: DATE: TIME: NEXT DOSE DUE: DATE: TIME: Cortizone-10 1% Creme (Hydrocortisone/Aloe Vera) 28 Gm Cream..g. 1 Eron TP BID PRN LAST DOSE GIVEN: DATE: TIME: NEXT DOSE DUE: DATE: TIME: Celexa (Citalopram Hydrobromide) 40 Mg Tablet 40 Mg PO DAILY LAST DOSE GIVEN: DATE: TIME: NEXT DOSE DUE: DATE: TIME: Levothyroxine Sodium 100 Mcg Tablet 100 Mcg PO DAILYAC LAST DOSE GIVEN: DATE: TIME: NEXT DOSE DUE: DATE: TIME: Fenofibrate (Fenofibrate,Micronized) 200 Mg Capsule 200 Mg PO DAILY08 LAST DOSE GIVEN: DATE: TIME: NEXT DOSE DUE: DATE: TIME: Atorvastatin Calcium 40 Mg Tablet 40 Mg PO HS LAST DOSE GIVEN: DATE: TIME: NEXT DOSE DUE: DATE: TIME: Acetaminophen 500 Mg Tablet 500-1,000 Mg PO PRN Q6HRS PRN LAST DOSE GIVEN: DATE: TIME: NEXT DOSE DUE: DATE: TIME: I have reviewed the current psychotropics carefully including drug interactions. Risk benefit ratio favors no change other than as noted in my dictated progress note. Diagnosis: Problems: (1) Acute kidney injury (2) Hypomagnesemia (3) Anxiety disorder (4) Major depressive disorder, recurrent episode (5) Impulse control disorder (6) Mild cognitive impairment YASMIN DEXTER MD September 18, 2017 22:11
[2017-09-19 06:00] VITALS: BP 139/56
[2017-09-19] MEDS: LEVOTHYROXINE 100 MCG TABLET PO SCH (07:51)
[2017-09-19] MEDS: MULTIVITAMIN with MINERAL TABLET. PO SCH (08:31)
[2017-09-19] MEDS: PSYLLIUM SEED (WITH SUGAR) PACKET. PO SCH (08:31)
[2017-09-19] MEDS: FENOFIBRATE NANOCRYSTALLIZED 145 MG TABLET PO SCH (08:32)
[2017-09-19] MEDS ORDERED: GLIMEPIRIDE 2 MG TABLET PO SCH (09:00)
[2017-09-19] MEDS ORDERED: CITALOPRAM 20 MG TABLET. PO SCH (09:00)
--- NOTE | 2017-09-19 09:11 | RAD ---
CT scan of the head without contrast 09/19/2017 Clinical History: Recent history of falls. Technique: Unenhanced, contiguous, 5 mm axial sections were obtained through the head. One or more of the following individualized dose reduction techniques were utilized for this study: 1. Automated exposure control. 2. Adjustment of the mA and/or kV according to patient size. 3. Use of iterative reconstruction technique. Findings: No previous imaging studies are available for comparison. There is generalized parenchymal atrophy. Areas of decreased attenuation are seen within the periventricular and subcortical white matter of both cerebral hemispheres consistent with areas of small vessel ischemic disease. No acute parenchymal abnormality is seen. No extra-axial fluid collection is noted. No skull fracture is seen. Impression: No acute intracranial abnormality is seen. Electronically signed by: Jose Herrera MD (09/19/2017 9:08 AM) [id number]
[2017-09-19 11:54] LABS: THYROID STIM HORMONE (TSH) 0.89 uIU/mL (0.358-3.740)
[2017-09-19 16:43] VITALS: BP 112/50
[2017-09-19 19:26] LABS: T3 TOTAL 57 ng/dL (71-180); THYROXINE 7.7 ug/dL (4.5-12.0)
--- NOTE | 2017-09-19 20:15 | PDOC ---
Exam Note: Percy Note: Please also refer to the separate dictated note~for this date of service dictated separately.~Patient seen individually. Discussed the patient with Nursing staff reviewed the chart.~Reviewed interim history and current functioning. Reviewed vital signs,~Labs/ Radiology~and current medications noted below. Continue current treatment with the changes noted in the dictated addendum note Assessment: Vital Signs: Vital Signs Date Time Temp Pulse Resp B/P (MAP) Pulse Ox O2 Delivery O2 Flow Rate FiO2 09/19/17 16:43 97.4 64 20 112/50 (70) 94 Room Air I&O Intake and Output 09/19/17 07:00 # Voids 1 Labs: Laboratory Tests Test 09/19/17 12:16 09/19/17 16:55 09/19/17 18:00 09/19/17 19:28 Glucose (Fingerstick) 52 mg/dL (70-99) L 46 mg/dL (70-99) L 121 mg/dL (70-99) H 97 mg/dL (70-99) Current Medications: Meds: Current Medications Levothyroxine Sodium (Synthroid) 100 mcg DAILYAC PO Last administered on at 07:51; Start 09/19/17 at 07:30 Acetaminophen (Tylenol) 1,000 mg PRN Q6HRS PRN PO PAIN / TEMP; Start 09/18/17 at 20:00 Atorvastatin Calcium (Lipitor) 40 mg QHS PO Last administered on 09/18/17at 21: 17; Start 09/18/17 at 21:00 Citalopram Hydrobromide (CeleXA) 40 mg DAILY PO Last administered on 09/19/17at 08:31; Start 09/19/17 at 09:00; Stop 09/19/17 at 18:17; Status DC Fenofibrate (Tricor) 145 mg DAILY PO Last administered on 09/19/17at 08:32; Start 09/19/17 at 09:00 Glimepiride (Amaryl) 0.5 mg DAILY PO Last administered on 09/19/17at 08:32; Start 09/19/17 at 09:00; Stop 09/19/17 at 18:47; Status DC Hydrocortisone (Cortaid) 1 eron PRN BID PRN TP ECZEMA/DRY SKIN; Start 09/18/17 at 20:00 Loperamide HCl (Imodium) 2 mg PRN QID PRN PO DIARRHEA; Start 09/18/17 at 20:00 Multivitamins/ Calcium (Thera-M Plus) 1 tab DAILY PO Last administered on at 08:31; Start 09/19/17 at 09:00 Psyllium Hydrophilic Mucilloid (Metamucil) 1 pkt DAILYWBKFT PO Last administered on 09/19/17at 08:31; Start 09/19/17 at 08:00 Tamsulosin HCl (Flomax) 0.4 mg QHS PO Last administered on 09/18/17at 21:17; Start 09/18/17 at 21:00 Acetaminophen (Tylenol) 650 mg PRN Q6HRS PRN PO PAIN / TEMP; Start 09/18/17 at 19:15; Status UNV Multi-Ingredient Ointment (Analgesic [place]) 1 eron PRN QID PRN TP MUSCLE PAIN; Start 09/18/17 at 19:15 Al Hydroxide/Mg Hydroxide (Mylanta Plus Xs) 15 ml PRN AFTMEALHC PRN PO DYSPEPSIA; Start 09/18/17 at 19:15 Magnesium Hydroxide (Milk Of Magnesia) 2,400 mg PRN QHS PRN PO CONSTIPATION; Start 09/18/17 at 19:15 Olanzapine (ZyPREXA ZYDIS) 2.5 mg PRN Q2HR PRN PO PSYCHOSIS Last administered on 09/19/17at 15:29; Start 09/19/17 at 15:30 Sertraline HCl (Zoloft) 50 mg DAILYWBKFT PO ; Start 09/20/17 at 08:00 Quetiapine Fumarate (SEROquel) 25 mg QHS PO ; Start 09/19/17 at 21:00 Magnesium Oxide (Magnesium Oxide) 400 mg TID PO ; Start 09/19/17 at 21:00 Active Scripts Active Reported Multivitamins (Multivitamin) 1 Each Tablet 1 Tab PO DAILY LAST DOSE GIVEN: DATE: TIME: NEXT DOSE DUE: DATE: TIME: Metamucil Powder (Psyllium Seed (with Sugar)) 575 Gm Powder 5 Gm PO DAILYWBKFT LAST DOSE GIVEN: DATE: TIME: NEXT DOSE DUE: DATE: TIME: Loperamide (Loperamide Hcl) 2 Mg Tablet 2 Mg PO PRN QID PRN LAST DOSE GIVEN: DATE: TIME: NEXT DOSE DUE: DATE: TIME: Glimepiride 1 Mg Tablet 0.5 Mg PO DAILY LAST DOSE GIVEN: DATE: TIME: NEXT DOSE DUE: DATE: TIME: Cortizone-10 1% Creme (Hydrocortisone/Aloe Vera) 28 Gm Cream..g. 1 Eron TP BID PRN LAST DOSE GIVEN: DATE: TIME: NEXT DOSE DUE: DATE: TIME: Celexa (Citalopram Hydrobromide) 40 Mg Tablet 40 Mg PO DAILY LAST DOSE GIVEN: DATE: TIME: NEXT DOSE DUE: DATE: TIME: Levothyroxine Sodium 100 Mcg Tablet 100 Mcg PO DAILYAC LAST DOSE GIVEN: DATE: TIME: NEXT DOSE DUE: DATE: TIME: Fenofibrate (Fenofibrate,Micronized) 200 Mg Capsule 200 Mg PO DAILY08 LAST DOSE GIVEN: DATE: TIME: NEXT DOSE DUE: DATE: TIME: Atorvastatin Calcium 40 Mg Tablet 40 Mg PO HS LAST DOSE GIVEN: DATE: TIME: NEXT DOSE DUE: DATE: TIME: Acetaminophen 500 Mg Tablet 500-1,000 Mg PO PRN Q6HRS PRN LAST DOSE GIVEN: DATE: TIME: NEXT DOSE DUE: DATE: TIME: I have reviewed the current psychotropics carefully including drug interactions. Risk benefit ratio favors no change other than as noted in my dictated progress note. Diagnosis: Problems: (1) Hypomagnesemia (2) Acute kidney injury (3) Anxiety disorder (4) Major depressive disorder, recurrent episode (5) Impulse control disorder (6) Mild cognitive impairment YASMIN DEXTER MD September 19, 2017 20:15
[2017-09-19] MEDS: TAMSULOSIN 0.4 MG CAP.ER.24H. PO SCH (21:38)
[2017-09-19] MEDS: ATORVASTATIN CALCIUM 20 MG TABLET PO SCH (21:38)
[2017-09-19] MEDS: MAGNESIUM OXIDE 400 MG TABLET PO SCH (21:39)
[2017-09-19] MEDS: QUEtiapine 25 MG TABLET. PO SCH (21:39)
--- NOTE | 2017-09-20 00:10 | CONS ---
DATE OF CONSULTATION: 09/19/2017 REASON FOR CONSULTATION: Medical management. HISTORY OF PRESENT ILLNESS: The patient is an 82-year-old male patient, who was a resident at an assisted living facility, who was initially seen in the Emergency Room, was found to have acute kidney injury and was admitted initially to [address] [place] [address] to stabilize him medically and by the time he was discharged, his kidney function has normalized and creatinine came down from 2.5 to 1.2 mg. His hypomagnesemia and ____ all resolved and was admitted to [facility] on account of severe depression, refusing to get up to the bathroom, has lost about 25 pounds in 9 months. He is constantly worrying about falling and an outpatient psychiatric intervention was attempted with Keyla without much improvement and therefore, he is here for inpatient psychiatric stabilization. PAST MEDICAL HISTORY: Significant for type 2 diabetes mellitus, chronic kidney disease, chronic constipation, benign prostatic hypertrophy, hyperlipidemia, hypothyroidism, and hypertension. PAST SURGICAL HISTORY: Unremarkable. SOCIAL HISTORY: He is . His about 10 years ago, has been living in assisted living for almost 8 years according to him. He has 2 daughters and grandchildren and grand grandchildren. 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 He does not smoke, drink alcohol or do recreational drugs. ALLERGIES: He is allergic to sulfa drugs. MEDICATIONS: He is currently on following medications: He is on fenofibrate 200 mg daily, atorvastatin calcium 40 mg at bedtime, Tylenol 500 to 1000 mg every 6 hours, Celexa 40 mg once a day, loperamide 2 mg 4 times a day as needed for diarrhea. He is on Metamucil powder 5 grams daily with breakfast, glimepiride 0.5 mg daily, levothyroxine sodium 100 mcg daily, hydrocortisone/aloe vera one application twice a day for eczema and dry skin, and multivitamin 1 tablet once a day. REVIEW OF SYSTEMS: As per history of present illness. PHYSICAL EXAMINATION: GENERAL: When I examined him today, he was sitting comfortably in his wheelchair, wheeling himself around, in no apparent respiratory distress. He was pale, but no jaundice, cyanosis, or thyromegaly. No jugular venous distension. No limb edema. VITAL SIGNS: Her heart rate was 64, blood pressure was 112/50, temperature was 97.4, respiratory rate 20, and oxygen saturation was 94%. HEAD, EYES, EARS, NOSE and THROAT: Showed normocephalic, atraumatic. NECK: Supple. HEART: Showed normal first and second heart sounds. No gallop, rub or murmur. CHEST: Clear to auscultation. No crepitation or rhonchi. ABDOMEN: Distended, soft, nontender. NEUROLOGIC: He was awake, alert, responding appropriately. Cranial nerves were intact. He moves upper extremities to much a greater extent than his lower extremities. LABORATORY DATA: His lab work showed that his blood sugar was low and magnesium was low. His serum triglycerides, cholesterol, LDL and VLDL were normal. TSH is normal at 0.89. ASSESSMENT AND PLAN: Given his hypomagnesemia, I will start him on magnesium oxide 400 mg 4 times a day. Given tendency to hypoglycemia, I discontinued Amaryl altogether. I will repeat all his lab work tomorrow to make sure his kidney function remained stable. Thank you, Dr. Bolivar, for allowing me to participate in the care of this patient. CAREN ROMO MD DR: MAYA/maxx JOB#: [id number] / [id number]
[2017-09-20 05:42] VITALS: BP 158/69
[2017-09-20] MEDS: PSYLLIUM SEED (WITH SUGAR) PACKET. PO SCH (07:40)
[2017-09-20] MEDS: MAGNESIUM OXIDE 400 MG TABLET PO SCH ×3 (07:40→20:40)
[2017-09-20] MEDS: LEVOTHYROXINE 100 MCG TABLET PO SCH (07:40)
[2017-09-20] MEDS: MULTIVITAMIN with MINERAL TABLET. PO SCH (07:40)
[2017-09-20] MEDS: FENOFIBRATE NANOCRYSTALLIZED 145 MG TABLET PO SCH (07:40)
[2017-09-20] MEDS: SERTRALINE 50 MG TABLET. PO SCH (07:41)
[2017-09-20 07:44] LABS: BACTERIA,URINE 0 /HPF (0-FEW); BILIRUBIN,URINE NEG (NEG); CLARITY,URINE HAZY; COLOR,URINE STRAW; GLUCOSE,URINE NEG (NEG); NITRITE,URINE NEG (NEG); SQUAMOUS EPITHELIAL CELL,UR OCC /LPF; UROBILINOGEN,URINE 0.2 mg/dL (0.2 mg/dL); WBC,URINE 0 /HPF (0-4)
[2017-09-20 09:54] LABS: BASO % 0 % (0-3); EOS # 0.1 x10^3/uL (0.0-0.7); EOS % 1 % (0-3); HEMATOCRIT 36.9 % (39.0-53.0); HEMOGLOBIN 12.5 g/dL (13.0-17.5); LYMPH # 1.5 x10^3/uL (1.0-4.8); LYMPH % 18 % (24-48); MEAN CORPUSCULAR HEMOGLOBIN 28 pg (25-35); MEAN CORPUSCULAR HGB CONC 34 g/dL (31-37); MEAN CORPUSCULAR VOLUME 84 fL (79-100); MONO # 0.5 x10^3/uL (0.0-1.1); MONO % 6 % (0-9); NEUT % 74 % (31-73); PLATELET COUNT 324 x10^3/uL (140-400); RED CELL DISTRIBUTION WIDTH 15.1 % (11.5-14.5); WHITE BLOOD COUNT 8.1 x10^3/uL (4.0-11.0)
[2017-09-20 10:09] LABS: ALBUMIN 2.7 g/dL (3.4-5.0); ALBUMIN/GLOBULIN RATIO 0.7 (1.0-1.7); CALCIUM 9.5 mg/dL (8.5-10.1); CREATININE 1.3 mg/dL (0.7-1.3); GFR 52.7; POTASSIUM 4.1 mmol/L (3.5-5.1); TOTAL BILIRUBIN 0.4 mg/dL (0.2-1.0); TOTAL PROTEIN 6.7 g/dL (6.4-8.2)
[2017-09-20 16:18] VITALS: BP 110/54
[2017-09-20] MEDS: TAMSULOSIN 0.4 MG CAP.ER.24H. PO SCH (20:39)
[2017-09-20] MEDS: QUEtiapine 25 MG TABLET. PO SCH (20:39)
[2017-09-20] MEDS: ATORVASTATIN CALCIUM 20 MG TABLET PO SCH (20:40)
--- NOTE | 2017-09-21 02:53 | PN ---
DATE: 09/19/2017 This is a late entry, 09/19/2017, covers the elements not covered in my initial note, 09/19/2017. SUBJECTIVE: I met with the patient in the evening. The patient slept 9 hours previous evening. Nursing staff had called me as an emergency earlier in the day on account of the patient's marked hallucinations, anxiety. He believed he is falling out of bed, was hallucinating, felt he was upside down. CT head is negative. He wants to wheel himself, unable to do this. We had added Zyprexa p.r.n. REVIEW OF SYSTEMS: Ambulation impaired. No CV, , pulmonary, eye system symptoms on review. I helped feed him a part of his dinner. MENTAL STATUS EXAM: Oriented to himself and situation. Speech has some latency, often responses monosyllabic. Abstraction fair, computation impaired, language function intact. Mood and affect depressed, withdrawn. LABORATORY DATA: Reviewed. IMPRESSION: Major depressive disorder with psychotic features; cognitive disorder, unspecified. PLAN: Change Celexa to Zoloft 50 mg a day, start Seroquel 25 mg at bedtime for his anxiety, mood lability to augment the Zoloft. Blood sugar was 121. Continue rest unchanged including Zyprexa as needed. May need to add atypical antipsychotic on a scheduled basis. We will see how he progresses with the above changes first. YASMIN DEXTER MD DR: NISREEN/maxx JOB#: [id number] / [id number]
[2017-09-21 06:07] VITALS: BP 140/60
[2017-09-21] MEDS: SERTRALINE 50 MG TABLET. PO SCH (08:50)
[2017-09-21] MEDS: PSYLLIUM SEED (WITH SUGAR) PACKET. PO SCH (08:50)
[2017-09-21] MEDS: LEVOTHYROXINE 100 MCG TABLET PO SCH (08:50)
[2017-09-21] MEDS: MULTIVITAMIN with MINERAL TABLET. PO SCH (08:50)
[2017-09-21] MEDS: MAGNESIUM OXIDE 400 MG TABLET PO SCH ×3 (08:50→19:40)
[2017-09-21] MEDS: FENOFIBRATE NANOCRYSTALLIZED 145 MG TABLET PO SCH (08:52)
[2017-09-21 16:35] VITALS: BP 103/55
[2017-09-21] MEDS: TAMSULOSIN 0.4 MG CAP.ER.24H. PO SCH (19:40)
[2017-09-21] MEDS: QUEtiapine 25 MG TABLET. PO SCH (19:40)
[2017-09-21] MEDS: ATORVASTATIN CALCIUM 20 MG TABLET PO SCH (19:40)
--- NOTE | 2017-09-21 22:42 | PDOC ---
Exam Note: Percy Note: Late entry for date of service September 20, 2017. Please also refer to the separate dictated note~for this date of service dictated separately.~Patient seen individually. Discussed the patient with Nursing staff reviewed the chart.~ Reviewed interim history and current functioning. Reviewed vital signs,~Labs/ Radiology~and current medications noted below. Continue current treatment with the changes noted in the dictated addendum note Assessment: Vital Signs: VS - Last 72 Hours, by Label Date Time Temp Pulse Resp B/P (MAP) Pulse Ox O2 Delivery O2 Flow Rate FiO2 09/21/17 16:35 98.3 71 16 103/55 (71) 97 09/21/17 06:07 97.7 72 20 140/60 (86) 94 09/20/17 16:18 98.2 63 18 110/54 (72) 98 09/20/17 05:42 98.2 74 20 158/69 (98) 94 Room Air 09/19/17 16:43 97.4 64 20 112/50 (70) 94 Room Air 09/19/17 06:00 97.7 59 18 139/56 (83) 96 Vital Signs Date Time Temp Pulse Resp B/P (MAP) Pulse Ox O2 Delivery O2 Flow Rate FiO2 09/21/17 16:35 98.3 71 16 103/55 (71) 97 09/20/17 05:42 Room Air I&O Intake and Output 09/21/17 07:00 Intake Total 960 ml Balance 960 ml Intake Oral 960 ml Labs: Laboratory Tests Test 09/21/17 07:39 09/21/17 12:18 09/21/17 17:12 09/21/17 19:49 Glucose (Fingerstick) 116 mg/dL (70-99) H 144 mg/dL (70-99) H 117 mg/dL (70-99) H 143 mg/dL (70-99) H Current Medications: Meds: Current Medications Levothyroxine Sodium (Synthroid) 100 mcg DAILYAC PO Last administered on at 08:50; Start 09/19/17 at 07:30 Acetaminophen (Tylenol) 1,000 mg PRN Q6HRS PRN PO PAIN / TEMP; Start 09/18/17 at 20:00 Atorvastatin Calcium (Lipitor) 40 mg QHS PO Last administered on 09/21/17at 19: 40; Start 09/18/17 at 21:00 Citalopram Hydrobromide (CeleXA) 40 mg DAILY PO Last administered on 09/19/17at 08:31; Start 09/19/17 at 09:00; Stop 09/19/17 at 18:17; Status DC Fenofibrate (Tricor) 145 mg DAILY PO Last administered on 09/21/17at 08:52; Start 09/19/17 at 09:00 Glimepiride (Amaryl) 0.5 mg DAILY PO Last administered on 09/19/17at 08:32; Start 09/19/17 at 09:00; Stop 09/19/17 at 18:47; Status DC Hydrocortisone (Cortaid) 1 eron PRN BID PRN TP ECZEMA/DRY SKIN; Start 09/18/17 at 20:00 Loperamide HCl (Imodium) 2 mg PRN QID PRN PO DIARRHEA; Start 09/18/17 at 20:00 Multivitamins/ Calcium (Thera-M Plus) 1 tab DAILY PO Last administered on at 08:50; Start 09/19/17 at 09:00 Psyllium Hydrophilic Mucilloid (Metamucil) 1 pkt DAILYWBKFT PO Last administered on 09/21/17at 08:50; Start 09/19/17 at 08:00 Tamsulosin HCl (Flomax) 0.4 mg QHS PO Last administered on 09/21/17at 19:40; Start 09/18/17 at 21:00 Acetaminophen (Tylenol) 650 mg PRN Q6HRS PRN PO PAIN / TEMP; Start 09/18/17 at 19:15; Status UNV Multi-Ingredient Ointment (Analgesic [place]) 1 eron PRN QID PRN TP MUSCLE PAIN; Start 09/18/17 at 19:15 Al Hydroxide/Mg Hydroxide (Mylanta Plus Xs) 15 ml PRN AFTMEALHC PRN PO DYSPEPSIA; Start 09/18/17 at 19:15 Magnesium Hydroxide (Milk Of Magnesia) 2,400 mg PRN QHS PRN PO CONSTIPATION Last administered on 09/21/17at 14:55; Start 09/18/17 at 19:15 Olanzapine (ZyPREXA ZYDIS) 2.5 mg PRN Q2HR PRN PO PSYCHOSIS Last administered on 09/19/17at 15:29; Start 09/19/17 at 15:30 Sertraline HCl (Zoloft) 50 mg DAILYWBKFT PO Last administered on 09/21/17at 08: 50; Start 09/20/17 at 08:00 Quetiapine Fumarate (SEROquel) 25 mg QHS PO Last administered on 09/21/17at 19: 40; Start 09/19/17 at 21:00 Magnesium Oxide (Magnesium Oxide) 400 mg TID PO Last administered on 09/21/17at 19:40; Start 09/19/17 at 21:00 Active Scripts Active Reported Multivitamins (Multivitamin) 1 Each Tablet 1 Tab PO DAILY LAST DOSE GIVEN: DATE: TIME: NEXT DOSE DUE: DATE: TIME: Metamucil Powder (Psyllium Seed (with Sugar)) 575 Gm Powder 5 Gm PO DAILYWBKFT LAST DOSE GIVEN: DATE: TIME: NEXT DOSE DUE: DATE: TIME: Loperamide (Loperamide Hcl) 2 Mg Tablet 2 Mg PO PRN QID PRN LAST DOSE GIVEN: DATE: TIME: NEXT DOSE DUE: DATE: TIME: Glimepiride 1 Mg Tablet 0.5 Mg PO DAILY LAST DOSE GIVEN: DATE: TIME: NEXT DOSE DUE: DATE: TIME: Cortizone-10 1% Creme (Hydrocortisone/Aloe Vera) 28 Gm Cream..g. 1 Eron TP BID PRN LAST DOSE GIVEN: DATE: TIME: NEXT DOSE DUE: DATE: TIME: Celexa (Citalopram Hydrobromide) 40 Mg Tablet 40 Mg PO DAILY LAST DOSE GIVEN: DATE: TIME: NEXT DOSE DUE: DATE: TIME: Levothyroxine Sodium 100 Mcg Tablet 100 Mcg PO DAILYAC LAST DOSE GIVEN: DATE: TIME: NEXT DOSE DUE: DATE: TIME: Fenofibrate (Fenofibrate,Micronized) 200 Mg Capsule 200 Mg PO DAILY08 LAST DOSE GIVEN: DATE: TIME: NEXT DOSE DUE: DATE: TIME: Atorvastatin Calcium 40 Mg Tablet 40 Mg PO HS LAST DOSE GIVEN: DATE: TIME: NEXT DOSE DUE: DATE: TIME: Acetaminophen 500 Mg Tablet 500-1,000 Mg PO PRN Q6HRS PRN LAST DOSE GIVEN: DATE: TIME: NEXT DOSE DUE: DATE: TIME: I have reviewed the current psychotropics carefully including drug interactions. Risk benefit ratio favors no change other than as noted in my dictated progress note. Diagnosis: Problems: (1) Hypomagnesemia (2) Acute kidney injury (3) Anxiety disorder (4) Major depressive disorder, recurrent episode (5) Impulse control disorder (6) Mild cognitive impairment YASMIN DEXTER MD September 21, 2017 22:42
--- NOTE | 2017-09-21 23:13 | PDOC ---
Exam Note: Percy Note: Please also refer to the separate dictated note~for this date of service dictated separately.~Patient seen individually. Discussed the patient with Nursing staff reviewed the chart.~Reviewed interim history and current functioning. Reviewed vital signs,~Labs/ Radiology~and current medications noted below. Continue current treatment with the changes noted in the dictated addendum note Assessment: Vital Signs: Vital Signs Date Time Temp Pulse Resp B/P (MAP) Pulse Ox O2 Delivery O2 Flow Rate FiO2 09/21/17 16:35 98.3 71 16 103/55 (71) 97 09/20/17 05:42 Room Air I&O Intake and Output 09/21/17 07:00 Intake Total 960 ml Balance 960 ml Intake Oral 960 ml Labs: Laboratory Tests Test 09/21/17 07:39 09/21/17 12:18 09/21/17 17:12 09/21/17 19:49 Glucose (Fingerstick) 116 mg/dL (70-99) H 144 mg/dL (70-99) H 117 mg/dL (70-99) H 143 mg/dL (70-99) H Current Medications: Meds: Current Medications Levothyroxine Sodium (Synthroid) 100 mcg DAILYAC PO Last administered on at 08:50; Start 09/19/17 at 07:30 Acetaminophen (Tylenol) 1,000 mg PRN Q6HRS PRN PO PAIN / TEMP; Start 09/18/17 at 20:00 Atorvastatin Calcium (Lipitor) 40 mg QHS PO Last administered on 09/21/17at 19: 40; Start 09/18/17 at 21:00 Citalopram Hydrobromide (CeleXA) 40 mg DAILY PO Last administered on 09/19/17at 08:31; Start 09/19/17 at 09:00; Stop 09/19/17 at 18:17; Status DC Fenofibrate (Tricor) 145 mg DAILY PO Last administered on 09/21/17at 08:52; Start 09/19/17 at 09:00 Glimepiride (Amaryl) 0.5 mg DAILY PO Last administered on 09/19/17at 08:32; Start 09/19/17 at 09:00; Stop 09/19/17 at 18:47; Status DC Hydrocortisone (Cortaid) 1 eron PRN BID PRN TP ECZEMA/DRY SKIN; Start 09/18/17 at 20:00 Loperamide HCl (Imodium) 2 mg PRN QID PRN PO DIARRHEA; Start 09/18/17 at 20:00 Multivitamins/ Calcium (Thera-M Plus) 1 tab DAILY PO Last administered on at 08:50; Start 09/19/17 at 09:00 Psyllium Hydrophilic Mucilloid (Metamucil) 1 pkt DAILYWBKFT PO Last administered on 09/21/17at 08:50; Start 09/19/17 at 08:00 Tamsulosin HCl (Flomax) 0.4 mg QHS PO Last administered on 09/21/17 19:40; Start 09/18/17 at 21:00 Acetaminophen (Tylenol) 650 mg PRN Q6HRS PRN PO PAIN / TEMP; Start 09/18/17 at 19:15; Status UNV Multi-Ingredient Ointment (Analgesic [place]) 1 eron PRN QID PRN TP MUSCLE PAIN; Start 09/18/17 at 19:15 Al Hydroxide/Mg Hydroxide (Mylanta Plus Xs) 15 ml PRN AFTMEALHC PRN PO DYSPEPSIA; Start 09/18/17 at 19:15 Magnesium Hydroxide (Milk Of Magnesia) 2,400 mg PRN QHS PRN PO CONSTIPATION Last administered on 09/21/17at 14:55; Start 09/18/17 at 19:15 Olanzapine (ZyPREXA ZYDIS) 2.5 mg PRN Q2HR PRN PO PSYCHOSIS Last administered on 09/19/17at 15:29; Start 09/19/17 at 15:30 Sertraline HCl (Zoloft) 50 mg DAILYWBKFT PO Last administered on 09/21/17at 08: 50; Start 09/20/17 at 08:00 Quetiapine Fumarate (SEROquel) 25 mg QHS PO Last administered on 09/21/17 19: 40; Start 09/19/17 at 21:00 Magnesium Oxide (Magnesium Oxide) 400 mg TID PO Last administered on 09/21/17at 19:40; Start 09/19/17 at 21:00 Active Scripts Active Reported Multivitamins (Multivitamin) 1 Each Tablet 1 Tab PO DAILY LAST DOSE GIVEN: DATE: TIME: NEXT DOSE DUE: DATE: TIME: Metamucil Powder (Psyllium Seed (with Sugar)) 575 Gm Powder 5 Gm PO DAILYWBKFT LAST DOSE GIVEN: DATE: TIME: NEXT DOSE DUE: DATE: TIME: Loperamide (Loperamide Hcl) 2 Mg Tablet 2 Mg PO PRN QID PRN LAST DOSE GIVEN: DATE: TIME: NEXT DOSE DUE: DATE: TIME: Glimepiride 1 Mg Tablet 0.5 Mg PO DAILY LAST DOSE GIVEN: DATE: TIME: NEXT DOSE DUE: DATE: TIME: Cortizone-10 1% Creme (Hydrocortisone/Aloe Vera) 28 Gm Cream..g. 1 Eron TP BID PRN LAST DOSE GIVEN: DATE: TIME: NEXT DOSE DUE: DATE: TIME: Celexa (Citalopram Hydrobromide) 40 Mg Tablet 40 Mg PO DAILY LAST DOSE GIVEN: DATE: TIME: NEXT DOSE DUE: DATE: TIME: Levothyroxine Sodium 100 Mcg Tablet 100 Mcg PO DAILYAC LAST DOSE GIVEN: DATE: TIME: NEXT DOSE DUE: DATE: TIME: Fenofibrate (Fenofibrate,Micronized) 200 Mg Capsule 200 Mg PO DAILY08 LAST DOSE GIVEN: DATE: TIME: NEXT DOSE DUE: DATE: TIME: Atorvastatin Calcium 40 Mg Tablet 40 Mg PO HS LAST DOSE GIVEN: DATE: TIME: NEXT DOSE DUE: DATE: TIME: Acetaminophen 500 Mg Tablet 500-1,000 Mg PO PRN Q6HRS PRN LAST DOSE GIVEN: DATE: TIME: NEXT DOSE DUE: DATE: TIME: I have reviewed the current psychotropics carefully including drug interactions. Risk benefit ratio favors no change other than as noted in my dictated progress note. Diagnosis: Problems: (1) Hypomagnesemia (2) Acute kidney injury (3) Anxiety disorder (4) Major depressive disorder, recurrent episode (5) Impulse control disorder (6) Mild cognitive impairment YASMIN DEXTER MD September 21, 2017 23:13
[2017-09-22] MEDS: LEVOTHYROXINE 100 MCG TABLET PO SCH (05:47)
[2017-09-22 05:59] VITALS: BP 150/72
[2017-09-22] MEDS: SERTRALINE 50 MG TABLET. PO SCH (10:48)
[2017-09-22] MEDS: PSYLLIUM SEED (WITH SUGAR) PACKET. PO SCH (10:48)
[2017-09-22] MEDS: MAGNESIUM OXIDE 400 MG TABLET PO SCH ×3 (10:48→18:38)
[2017-09-22] MEDS: MULTIVITAMIN with MINERAL TABLET. PO SCH (10:48)
[2017-09-22] MEDS: FENOFIBRATE NANOCRYSTALLIZED 145 MG TABLET PO SCH (10:48)
[2017-09-22 15:38] VITALS: BP 136/57
[2017-09-22] MEDS: QUEtiapine 25 MG TABLET. PO SCH (18:38)
[2017-09-22] MEDS: ATORVASTATIN CALCIUM 20 MG TABLET PO SCH (18:38)
[2017-09-22] MEDS: TAMSULOSIN 0.4 MG CAP.ER.24H. PO SCH (18:38)
--- NOTE | 2017-09-22 20:45 | PDOC ---
Exam Note: Percy Note: Please also refer to the separate dictated note~for this date of service dictated separately.~Patient seen individually. Discussed the patient with Nursing staff reviewed the chart.~Reviewed interim history and current functioning. Reviewed vital signs,~Labs/ Radiology~and current medications noted below. Continue current treatment with the changes noted in the dictated addendum note Assessment: Vital Signs: Vital Signs Date Time Temp Pulse Resp B/P (MAP) Pulse Ox O2 Delivery O2 Flow Rate FiO2 09/22/17 15:38 98.0 61 19 136/57 (83) 98 09/20/17 05:42 Room Air I&O Intake and Output 09/22/17 07:00 Intake Total 960 ml Balance 960 ml Intake Oral 960 ml Labs: Laboratory Tests Test 09/22/17 07:17 09/22/17 11:51 09/22/17 16:10 09/22/17 19:31 Glucose (Fingerstick) 120 mg/dL (70-99) H 171 mg/dL (70-99) H 118 mg/dL (70-99) H 161 mg/dL (70-99) H Current Medications: Meds: Current Medications Levothyroxine Sodium (Synthroid) 100 mcg DAILYAC PO Last administered on at 05:47; Start 09/19/17 at 07:30 Acetaminophen (Tylenol) 1,000 mg PRN Q6HRS PRN PO PAIN / TEMP; Start 09/18/17 at 20:00 Atorvastatin Calcium (Lipitor) 40 mg QHS PO Last administered on 09/22/17at 18: 38; Start 09/18/17 at 21:00 Citalopram Hydrobromide (CeleXA) 40 mg DAILY PO Last administered on 09/19/17at 08:31; Start 09/19/17 at 09:00; Stop 09/19/17 at 18:17; Status DC Fenofibrate (Tricor) 145 mg DAILY PO Last administered on 09/22/17at 10:48; Start 09/19/17 at 09:00 Glimepiride (Amaryl) 0.5 mg DAILY PO Last administered on 09/19/17at 08:32; Start 09/19/17 at 09:00; Stop 09/19/17 at 18:47; Status DC Hydrocortisone (Cortaid) 1 eron PRN BID PRN TP ECZEMA/DRY SKIN; Start 09/18/17 at 20:00 Loperamide HCl (Imodium) 2 mg PRN QID PRN PO DIARRHEA; Start 09/18/17 at 20:00 Multivitamins/ Calcium (Thera-M Plus) 1 tab DAILY PO Last administered on 10:48; Start 09/19/17 at 09:00 Psyllium Hydrophilic Mucilloid (Metamucil) 1 pkt DAILYWBKFT PO Last administered on 09/22/17 10:48; Start 09/19/17 at 08:00 Tamsulosin HCl (Flomax) 0.4 mg QHS PO Last administered on 09/22/17 18:38; Start 09/18/17 at 21:00 Acetaminophen (Tylenol) 650 mg PRN Q6HRS PRN PO PAIN / TEMP; Start 09/18/17 at 19:15; Status UNV Multi-Ingredient Ointment (Analgesic [place]) 1 eron PRN QID PRN TP MUSCLE PAIN; Start 09/18/17 at 19:15 Al Hydroxide/Mg Hydroxide (Mylanta Plus Xs) 15 ml PRN AFTMEALHC PRN PO DYSPEPSIA; Start 09/18/17 at 19:15 Magnesium Hydroxide (Milk Of Magnesia) 2,400 mg PRN QHS PRN PO CONSTIPATION Last administered on 09/21/17at 14:55; Start 09/18/17 at 19:15 Olanzapine (ZyPREXA ZYDIS) 2.5 mg PRN Q2HR PRN PO PSYCHOSIS Last administered on 09/19/17at 15:29; Start 09/19/17 at 15:30 Sertraline HCl (Zoloft) 50 mg DAILYWBKFT PO Last administered on 09/22/17at 10: 48; Start 09/20/17 at 08:00 Quetiapine Fumarate (SEROquel) 25 mg QHS PO Last administered on 09/22/17 18: 38; Start 09/19/17 at 21:00 Magnesium Oxide (Magnesium Oxide) 400 mg TID PO Last administered on 09/22/17at 18:38; Start 09/19/17 at 21:00 Active Scripts Active Reported Multivitamins (Multivitamin) 1 Each Tablet 1 Tab PO DAILY LAST DOSE GIVEN: DATE: TIME: NEXT DOSE DUE: DATE: TIME: Metamucil Powder (Psyllium Seed (with Sugar)) 575 Gm Powder 5 Gm PO DAILYWBKFT LAST DOSE GIVEN: DATE: TIME: NEXT DOSE DUE: DATE: TIME: Loperamide (Loperamide Hcl) 2 Mg Tablet 2 Mg PO PRN QID PRN LAST DOSE GIVEN: DATE: TIME: NEXT DOSE DUE: DATE: TIME: Glimepiride 1 Mg Tablet 0.5 Mg PO DAILY LAST DOSE GIVEN: DATE: TIME: NEXT DOSE DUE: DATE: TIME: Cortizone-10 1% Creme (Hydrocortisone/Aloe Vera) 28 Gm Cream..g. 1 Eron TP BID PRN LAST DOSE GIVEN: DATE: TIME: NEXT DOSE DUE: DATE: TIME: Celexa (Citalopram Hydrobromide) 40 Mg Tablet 40 Mg PO DAILY LAST DOSE GIVEN: DATE: TIME: NEXT DOSE DUE: DATE: TIME: Levothyroxine Sodium 100 Mcg Tablet 100 Mcg PO DAILYAC LAST DOSE GIVEN: DATE: TIME: NEXT DOSE DUE: DATE: TIME: Fenofibrate (Fenofibrate,Micronized) 200 Mg Capsule 200 Mg PO DAILY08 LAST DOSE GIVEN: DATE: TIME: NEXT DOSE DUE: DATE: TIME: Atorvastatin Calcium 40 Mg Tablet 40 Mg PO HS LAST DOSE GIVEN: DATE: TIME: NEXT DOSE DUE: DATE: TIME: Acetaminophen 500 Mg Tablet 500-1,000 Mg PO PRN Q6HRS PRN LAST DOSE GIVEN: DATE: TIME: NEXT DOSE DUE: DATE: TIME: I have reviewed the current psychotropics carefully including drug interactions. Risk benefit ratio favors no change other than as noted in my dictated progress note. Diagnosis: Problems: (1) Hypomagnesemia (2) Acute kidney injury (3) Anxiety disorder (4) Major depressive disorder, recurrent episode (5) Impulse control disorder (6) Mild cognitive impairment YASMIN DEXTER MD September 22, 2017 20:45
--- NOTE | 2017-09-22 21:07 | PN ---
DATE: 09/20/2017 PSCYCHIATRIC PROGRESS NOTE This late entry 09/20/2017 covers elements not covered in my initial note 09/20/2017. SUBJECTIVE: I met with the patient evening of 09/20/2017. The patient ate no breakfast, slept reasonably well, ate some lunch then went back to bed, somewhat withdrawn, sedated in the evening. REVIEW OF SYSTEMS: Ambulation impaired, in wheelchair. No CV, , pulmonary, eye system symptoms on review. MENTAL STATUS EXAM: Oriented to himself and situation. Speech is coherent, has some latency. Abstraction fair, computation impaired, language function intact. Mood and affect depressed. He has been eating better. LABORATORIES: Reviewed. IMPRESSION: Unchanged from initial note. Adjust as clinically indicated. MAN Сергей DEXTER MD DR: NISREEN/maxx JOB#: [id number] / [id number]
[2017-09-23 06:09] VITALS: BP 134/63
[2017-09-23] MEDS: MULTIVITAMIN with MINERAL TABLET. PO SCH (08:48)
[2017-09-23] MEDS: MAGNESIUM OXIDE 400 MG TABLET PO SCH ×3 (08:48→19:59)
[2017-09-23] MEDS: FENOFIBRATE NANOCRYSTALLIZED 145 MG TABLET PO SCH (08:48)
[2017-09-23] MEDS: PSYLLIUM SEED (WITH SUGAR) PACKET. PO SCH (08:48)
[2017-09-23] MEDS: SERTRALINE 50 MG TABLET. PO SCH (08:48)
[2017-09-23] MEDS: LEVOTHYROXINE 100 MCG TABLET PO SCH (08:49)
--- NOTE | 2017-09-23 12:46 | PN ---
DATE: 09/21/2017 PSYCHIATRIC PROGRESS NOTE This late entry 09/21/2017 covers elements not covered in my initial note 09/21/2017. SUBJECTIVE: I met with the patient in the evening. Overall, the patient remains somewhat withdrawn with poor oral intake. REVIEW OF SYSTEMS: No CV, , pulmonary, eye, ENT system symptoms on review. Gait unsteady in wheelchair. MENTAL STATUS EXAM: Oriented to himself and situation. Speech is moderate latency, often responses monosyllabic. Abstraction fair, computation impaired, language function intact. Attention span short. No suicidal ideation. LABORATORIES: Reviewed. IMPRESSION: Unchanged from initial note. PLAN: Continue current psychotropics. We have adjusted the Zoloft along with Seroquel may augment with Wellbutrin if needed. MAN Сергей DEXTER MD DR: NISREEN/maxx JOB#: [id number] / [id number]
--- NOTE | 2017-09-23 14:19 | PN ---
DATE: 09/22/2017 PSYCHIATRIC PROGRESS NOTE This note covers elements not covered in my initial note of 09/22/2017. SUBJECTIVE: Met with the patient in the evening. The patient slept 10 hours, has appeared somewhat anxious, helpless, but then ate his meatballs, refused some carbohydrates during the meals. REVIEW OF SYSTEMS: Ambulation is impaired, in wheelchair. No CV, , pulmonary, eye, ENT system symptoms on review. MENTAL STATUS EXAM: Oriented to himself, situation. Speech has some latency, coherent, more animated today, smiling as I met with him. No suicidal or homicidal ideation. Appetite is somewhat better. LABORATORY DATA: Reviewed. IMPRESSION: Major depressive disorder; anxiety disorder, unspecified; cognitive disorder, unspecified. PLAN: Continue psychotropics mentioned in my initial note. CT head is negative. MAN Сергей DEXTER MD DR: NISREEN/maxx JOB#: [id number] / [id number]
[2017-09-23 16:17] VITALS: BP 114/67
[2017-09-23] MEDS: QUEtiapine 25 MG TABLET. PO SCH (19:59)
[2017-09-23] MEDS: ATORVASTATIN CALCIUM 20 MG TABLET PO SCH (19:59)
[2017-09-23] MEDS: TAMSULOSIN 0.4 MG CAP.ER.24H. PO SCH (19:59)
--- NOTE | 2017-09-23 20:42 | PDOC ---
Exam Note: Percy Note: Please also refer to the separate dictated note~for this date of service dictated separately.~Patient seen individually. Discussed the patient with Nursing staff reviewed the chart.~Reviewed interim history and current functioning. Reviewed vital signs,~Labs/ Radiology~and current medications noted below. Continue current treatment with the changes noted in the dictated addendum note Assessment: Vital Signs: Vital Signs Date Time Temp Pulse Resp B/P (MAP) Pulse Ox O2 Delivery O2 Flow Rate FiO2 09/23/17 16:17 97.5 56 16 114/67 (83) 97 09/20/17 05:42 Room Air I&O Intake and Output 09/23/17 07:00 Intake Total 1440 ml Balance 1440 ml Intake Oral 1440 ml # Bowel Movements 2 Labs: Laboratory Tests Test 09/23/17 07:42 09/23/17 11:14 09/23/17 16:08 09/23/17 19:10 Glucose (Fingerstick) 102 mg/dL (70-99) H 150 mg/dL (70-99) H 123 mg/dL (70-99) H 176 mg/dL (70-99) H Current Medications: Meds: Current Medications Levothyroxine Sodium (Synthroid) 100 mcg DAILYAC PO Last administered on at 08:49; Start 09/19/17 at 07:30 Acetaminophen (Tylenol) 1,000 mg PRN Q6HRS PRN PO PAIN / TEMP; Start 09/18/17 at 20:00 Atorvastatin Calcium (Lipitor) 40 mg QHS PO Last administered on 09/23/17at 19: 59; Start 09/18/17 at 21:00 Citalopram Hydrobromide (CeleXA) 40 mg DAILY PO Last administered on 09/19/17at 08:31; Start 09/19/17 at 09:00; Stop 09/19/17 at 18:17; Status DC Fenofibrate (Tricor) 145 mg DAILY PO Last administered on 09/23/17at 08:48; Start 09/19/17 at 09:00 Glimepiride (Amaryl) 0.5 mg DAILY PO Last administered on 09/19/17at 08:32; Start 09/19/17 at 09:00; Stop 09/19/17 at 18:47; Status DC Hydrocortisone (Cortaid) 1 eron PRN BID PRN TP ECZEMA/DRY SKIN; Start 09/18/17 at 20:00 Loperamide HCl (Imodium) 2 mg PRN QID PRN PO DIARRHEA; Start 09/18/17 at 20:00 Multivitamins/ Calcium (Thera-M Plus) 1 tab DAILY PO Last administered on 08:48; Start 09/19/17 at 09:00 Psyllium Hydrophilic Mucilloid (Metamucil) 1 pkt DAILYWBKFT PO Last administered on 09/23/17at 08:48; Start 09/19/17 at 08:00 Tamsulosin HCl (Flomax) 0.4 mg QHS PO Last administered on 09/23/17 19:59; Start 09/18/17 at 21:00 Acetaminophen (Tylenol) 650 mg PRN Q6HRS PRN PO PAIN / TEMP; Start 09/18/17 at 19:15; Status UNV Multi-Ingredient Ointment (Analgesic [place]) 1 eron PRN QID PRN TP MUSCLE PAIN; Start 09/18/17 at 19:15 Al Hydroxide/Mg Hydroxide (Mylanta Plus Xs) 15 ml PRN AFTMEALHC PRN PO DYSPEPSIA; Start 09/18/17 at 19:15 Magnesium Hydroxide (Milk Of Magnesia) 2,400 mg PRN QHS PRN PO CONSTIPATION Last administered on 09/21/17at 14:55; Start 09/18/17 at 19:15 Olanzapine (ZyPREXA ZYDIS) 2.5 mg PRN Q2HR PRN PO PSYCHOSIS Last administered on 09/19/17at 15:29; Start 09/19/17 at 15:30 Sertraline HCl (Zoloft) 50 mg DAILYWBKFT PO Last administered on 09/23/17at 08: 48; Start 09/20/17 at 08:00 Quetiapine Fumarate (SEROquel) 25 mg QHS PO Last administered on 09/23/17 19: 59; Start 09/19/17 at 21:00 Magnesium Oxide (Magnesium Oxide) 400 mg TID PO Last administered on 09/23/17 19:59; Start 09/19/17 at 21:00 Active Scripts Active Reported Multivitamins (Multivitamin) 1 Each Tablet 1 Tab PO DAILY LAST DOSE GIVEN: DATE: TIME: NEXT DOSE DUE: DATE: TIME: Metamucil Powder (Psyllium Seed (with Sugar)) 575 Gm Powder 5 Gm PO DAILYWBKFT LAST DOSE GIVEN: DATE: TIME: NEXT DOSE DUE: DATE: TIME: Loperamide (Loperamide Hcl) 2 Mg Tablet 2 Mg PO PRN QID PRN LAST DOSE GIVEN: DATE: TIME: NEXT DOSE DUE: DATE: TIME: Glimepiride 1 Mg Tablet 0.5 Mg PO DAILY LAST DOSE GIVEN: DATE: TIME: NEXT DOSE DUE: DATE: TIME: Cortizone-10 1% Creme (Hydrocortisone/Aloe Vera) 28 Gm Cream..g. 1 Eron TP BID PRN LAST DOSE GIVEN: DATE: TIME: NEXT DOSE DUE: DATE: TIME: Celexa (Citalopram Hydrobromide) 40 Mg Tablet 40 Mg PO DAILY LAST DOSE GIVEN: DATE: TIME: NEXT DOSE DUE: DATE: TIME: Levothyroxine Sodium 100 Mcg Tablet 100 Mcg PO DAILYAC LAST DOSE GIVEN: DATE: TIME: NEXT DOSE DUE: DATE: TIME: Fenofibrate (Fenofibrate,Micronized) 200 Mg Capsule 200 Mg PO DAILY08 LAST DOSE GIVEN: DATE: TIME: NEXT DOSE DUE: DATE: TIME: Atorvastatin Calcium 40 Mg Tablet 40 Mg PO HS LAST DOSE GIVEN: DATE: TIME: NEXT DOSE DUE: DATE: TIME: Acetaminophen 500 Mg Tablet 500-1,000 Mg PO PRN Q6HRS PRN LAST DOSE GIVEN: DATE: TIME: NEXT DOSE DUE: DATE: TIME: I have reviewed the current psychotropics carefully including drug interactions. Risk benefit ratio favors no change other than as noted in my dictated progress note. Diagnosis: Problems: (1) Hypomagnesemia (2) Acute kidney injury (3) Anxiety disorder (4) Major depressive disorder, recurrent episode (5) Impulse control disorder (6) Mild cognitive impairment YASMIN DEXTER MD September 23, 2017 20:42
--- NOTE | 2017-09-24 01:53 | PN ---
DATE: 09/23/2017 SUBJECTIVE: The patient was seen today, met with the staff, chart reviewed also covering for Dr. Bolivar. The patient apparently staying in bed most of the time, complaining of diarrhea, also complains of feeling depressed. His sleep and appetite have improved. Staff reports no major behavior problems. The patient walks with a walker and he is a fall risk. The patient also has multiple physical complaints, neuropathy and aches and pains. OBSERVATION: VITAL SIGNS: Temperature 97.5, blood pressure 134/63, pulse 62, respirations 18, O2 sat 92%. Slept about 7 hours last night. The patient apparently has been participating in activities, interacts with the staff, but he is irritable and drake most of the time. CURRENT MEDICATIONS: Include Zoloft 50 mg daily, Seroquel 25 mg at night. He is also on olanzapine 2.5 mg q. 2 hours p.r.n. and the patient denies of any side effects from the medications at this time. The patient is also receiving multivitamins, Tricor, Synthroid, Flomax, Lipitor and Imodium for diarrhea. LABORATORY DATA: Reviewed. ASSESSMENT: 1. Major depressive disorder, recurrent. 2. Severe anxiety disorder, unspecified. PLAN: The patient will continue on the current medications. The patient is encouraged to attend all the activities. SAMUEL DAVEY MD DR: JOSR/maxx JOB#: [id number] / [id number]
[2017-09-24 06:26] VITALS: BP 122/56
[2017-09-24] MEDS: FENOFIBRATE NANOCRYSTALLIZED 145 MG TABLET PO SCH (07:54)
[2017-09-24] MEDS: SERTRALINE 50 MG TABLET. PO SCH (07:54)
[2017-09-24] MEDS: MULTIVITAMIN with MINERAL TABLET. PO SCH (07:54)
[2017-09-24] MEDS: PSYLLIUM SEED (WITH SUGAR) PACKET. PO SCH (07:54)
[2017-09-24] MEDS: MAGNESIUM OXIDE 400 MG TABLET PO SCH ×3 (07:54→19:52)
[2017-09-24] MEDS: LEVOTHYROXINE 100 MCG TABLET PO SCH (07:54)
[2017-09-24 16:40] VITALS: BP 125/65
[2017-09-24] MEDS: ACETAMINOPHEN 500 MG TABLET PO PRN (17:03)
[2017-09-24] MEDS: TAMSULOSIN 0.4 MG CAP.ER.24H. PO SCH (19:52)
[2017-09-24] MEDS: ATORVASTATIN CALCIUM 20 MG TABLET PO SCH (19:52)
[2017-09-24] MEDS: QUEtiapine 25 MG TABLET. PO SCH (19:52)
[2017-09-25] MEDS: LEVOTHYROXINE 100 MCG TABLET PO SCH (06:16)
[2017-09-25 06:19] VITALS: BP 151/58
[2017-09-25] MEDS: FENOFIBRATE NANOCRYSTALLIZED 145 MG TABLET PO SCH (08:09)
[2017-09-25] MEDS: MULTIVITAMIN with MINERAL TABLET. PO SCH (08:09)
[2017-09-25] MEDS: PSYLLIUM SEED (WITH SUGAR) PACKET. PO SCH (08:09)
[2017-09-25] MEDS: MAGNESIUM OXIDE 400 MG TABLET PO SCH ×3 (08:11→19:11)
[2017-09-25] MEDS: SERTRALINE 50 MG TABLET. PO SCH (08:11)
[2017-09-25 16:27] VITALS: BP 122/61
[2017-09-25] MEDS: ATORVASTATIN CALCIUM 20 MG TABLET PO SCH (19:11)
[2017-09-25] MEDS: TAMSULOSIN 0.4 MG CAP.ER.24H. PO SCH (19:11)
[2017-09-25] MEDS: QUEtiapine 25 MG TABLET. PO SCH (19:11)
--- NOTE | 2017-09-25 19:53 | PDOC ---
Exam Note: Percy Note: Late entry for date of service September 24, 2017. Please also refer to the separate dictated note~for this date of service dictated separately.~Patient seen individually. Discussed the patient with Nursing staff reviewed the chart.~ Reviewed interim history and current functioning. Reviewed vital signs,~Labs/ Radiology~and current medications noted below. Continue current treatment with the changes noted in the dictated addendum note Assessment: Vital Signs: VS - Last 72 Hours, by Label Date Time Temp Pulse Resp B/P (MAP) Pulse Ox O2 Delivery O2 Flow Rate FiO2 09/25/17 16:27 97.8 67 20 122/61 (81) 98 09/25/17 06:19 97.6 63 20 151/58 (89) 09/24/17 16:40 97.1 62 18 125/65 (85) 96 Room Air 09/24/17 06:26 97.7 64 20 122/56 (78) 96 09/23/17 16:17 97.5 56 16 114/67 (83) 97 09/23/17 06:09 97.5 62 18 134/63 (86) 92 Vital Signs Date Time Temp Pulse Resp B/P (MAP) Pulse Ox O2 Delivery O2 Flow Rate FiO2 09/25/17 16:27 97.8 67 20 122/61 (81) 98 09/24/17 16:40 Room Air I&O Intake and Output 09/25/17 07:00 Intake Total 1080 ml Balance 1080 ml Intake Oral 1080 ml # Bowel Movements 1 Labs: Laboratory Tests Test 09/25/17 07:38 Glucose (Fingerstick) 108 mg/dL (70-99) H Current Medications: Meds: Current Medications Levothyroxine Sodium (Synthroid) 100 mcg DAILYAC PO Last administered on at 07:54; Start 09/19/17 at 07:30; Stop 09/24/17 at 16:59; Status DC Acetaminophen (Tylenol) 1,000 mg PRN Q6HRS PRN PO PAIN / TEMP Last administered on 09/24/17at 17:03; Start 09/18/17 at 20:00 Atorvastatin Calcium (Lipitor) 40 mg QHS PO Last administered on 09/25/17at 19: 11; Start 09/18/17 at 21:00 Citalopram Hydrobromide (CeleXA) 40 mg DAILY PO Last administered on 09/19/17 08:31; Start 09/19/17 at 09:00; Stop 09/19/17 at 18:17; Status DC Fenofibrate (Tricor) 145 mg DAILY PO Last administered on 09/25/17 08:09; Start 09/19/17 at 09:00 Glimepiride (Amaryl) 0.5 mg DAILY PO Last administered on 09/19/17at 08:32; Start 09/19/17 at 09:00; Stop 09/19/17 at 18:47; Status DC Hydrocortisone (Cortaid) 1 eron PRN BID PRN TP ECZEMA/DRY SKIN; Start 09/18/17 at 20:00 Loperamide HCl (Imodium) 2 mg PRN QID PRN PO DIARRHEA; Start 09/18/17 at 20:00 Multivitamins/ Calcium (Thera-M Plus) 1 tab DAILY PO Last administered on 08:09; Start 09/19/17 at 09:00 Psyllium Hydrophilic Mucilloid (Metamucil) 1 pkt DAILYWBKFT PO Last administered on 09/25/17at 08:09; Start 09/19/17 at 08:00 Tamsulosin HCl (Flomax) 0.4 mg QHS PO Last administered on 09/25/17 19:11; Start 09/18/17 at 21:00 Acetaminophen (Tylenol) 650 mg PRN Q6HRS PRN PO PAIN / TEMP; Start 09/18/17 at 19:15; Status UNV Multi-Ingredient Ointment (Analgesic [place]) 1 eron PRN QID PRN TP MUSCLE PAIN; Start 09/18/17 at 19:15 Al Hydroxide/Mg Hydroxide (Mylanta Plus Xs) 15 ml PRN AFTMEALHC PRN PO DYSPEPSIA; Start 09/18/17 at 19:15 Magnesium Hydroxide (Milk Of Magnesia) 2,400 mg PRN QHS PRN PO CONSTIPATION Last administered on 09/21/17at 14:55; Start 09/18/17 at 19:15 Olanzapine (ZyPREXA ZYDIS) 2.5 mg PRN Q2HR PRN PO PSYCHOSIS Last administered on 09/19/17at 15:29; Start 09/19/17 at 15:30 Sertraline HCl (Zoloft) 50 mg DAILYWBKFT PO Last administered on 09/24/17at 07: 54; Start 09/20/17 at 08:00; Stop 09/24/17 at 18:46; Status DC Quetiapine Fumarate (SEROquel) 25 mg QHS PO Last administered on 09/25/17at 19: 11; Start 09/19/17 at 21:00 Magnesium Oxide (Magnesium Oxide) 400 mg TID PO Last administered on 09/25/17at 19:11; Start 09/19/17 at 21:00 Levothyroxine Sodium (Synthroid) 100 mcg DAILY06 PO Last administered on at 06:16; Start 09/25/17 at 06:00 Sertraline HCl (Zoloft) 75 mg DAILYWBKFT PO Last administered on 09/25/17at 08: 11; Start 09/25/17 at 08:00 Active Scripts Active Reported Multivitamins (Multivitamin) 1 Each Tablet 1 Tab PO DAILY LAST DOSE GIVEN: DATE: TIME: NEXT DOSE DUE: DATE: TIME: Metamucil Powder (Psyllium Seed (with Sugar)) 575 Gm Powder 5 Gm PO DAILYWBKFT LAST DOSE GIVEN: DATE: TIME: NEXT DOSE DUE: DATE: TIME: Loperamide (Loperamide Hcl) 2 Mg Tablet 2 Mg PO PRN QID PRN LAST DOSE GIVEN: DATE: TIME: NEXT DOSE DUE: DATE: TIME: Glimepiride 1 Mg Tablet 0.5 Mg PO DAILY LAST DOSE GIVEN: DATE: TIME: NEXT DOSE DUE: DATE: TIME: Cortizone-10 1% Creme (Hydrocortisone/Aloe Vera) 28 Gm Cream..g. 1 Eron TP BID PRN LAST DOSE GIVEN: DATE: TIME: NEXT DOSE DUE: DATE: TIME: Celexa (Citalopram Hydrobromide) 40 Mg Tablet 40 Mg PO DAILY LAST DOSE GIVEN: DATE: TIME: NEXT DOSE DUE: DATE: TIME: Levothyroxine Sodium 100 Mcg Tablet 100 Mcg PO DAILYAC LAST DOSE GIVEN: DATE: TIME: NEXT DOSE DUE: DATE: TIME: Fenofibrate (Fenofibrate,Micronized) 200 Mg Capsule 200 Mg PO DAILY08 LAST DOSE GIVEN: DATE: TIME: NEXT DOSE DUE: DATE: TIME: Atorvastatin Calcium 40 Mg Tablet 40 Mg PO HS LAST DOSE GIVEN: DATE: TIME: NEXT DOSE DUE: DATE: TIME: Acetaminophen 500 Mg Tablet 500-1,000 Mg PO PRN Q6HRS PRN LAST DOSE GIVEN: DATE: TIME: NEXT DOSE DUE: DATE: TIME: I have reviewed the current psychotropics carefully including drug interactions. Risk benefit ratio favors no change other than as noted in my dictated progress note. Diagnosis: Problems: (1) Hypomagnesemia (2) Acute kidney injury (3) Anxiety disorder (4) Major depressive disorder, recurrent episode (5) Impulse control disorder (6) Mild cognitive impairment YASMIN DEXTER MD September 25, 2017 19:53
--- NOTE | 2017-09-25 20:29 | PDOC ---
Exam Note: Percy Note: Please also refer to the separate dictated note~for this date of service dictated separately.~Patient seen individually. Discussed the patient with Nursing staff reviewed the chart.~Reviewed interim history and current functioning. Reviewed vital signs,~Labs/ Radiology~and current medications noted below. Continue current treatment with the changes noted in the dictated addendum note Assessment: Vital Signs: Vital Signs Date Time Temp Pulse Resp B/P (MAP) Pulse Ox O2 Delivery O2 Flow Rate FiO2 09/25/17 16:27 97.8 67 20 122/61 (81) 98 09/24/17 16:40 Room Air I&O Intake and Output 09/25/17 07:00 Intake Total 1080 ml Balance 1080 ml Intake Oral 1080 ml # Bowel Movements 1 Labs: Laboratory Tests Test 09/25/17 07:38 Glucose (Fingerstick) 108 mg/dL (70-99) H Current Medications: Meds: Current Medications Levothyroxine Sodium (Synthroid) 100 mcg DAILYAC PO Last administered on at 07:54; Start 09/19/17 at 07:30; Stop 09/24/17 at 16:59; Status DC Acetaminophen (Tylenol) 1,000 mg PRN Q6HRS PRN PO PAIN / TEMP Last administered on 09/24/17at 17:03; Start 09/18/17 at 20:00 Atorvastatin Calcium (Lipitor) 40 mg QHS PO Last administered on 09/25/17at 19: 11; Start 09/18/17 at 21:00 Citalopram Hydrobromide (CeleXA) 40 mg DAILY PO Last administered on 09/19/17at 08:31; Start 09/19/17 at 09:00; Stop 09/19/17 at 18:17; Status DC Fenofibrate (Tricor) 145 mg DAILY PO Last administered on 09/25/17at 08:09; Start 09/19/17 at 09:00 Glimepiride (Amaryl) 0.5 mg DAILY PO Last administered on 09/19/17at 08:32; Start 09/19/17 at 09:00; Stop 09/19/17 at 18:47; Status DC Hydrocortisone (Cortaid) 1 eron PRN BID PRN TP ECZEMA/DRY SKIN; Start 09/18/17 at 20:00 Loperamide HCl (Imodium) 2 mg PRN QID PRN PO DIARRHEA; Start 09/18/17 at 20:00 Multivitamins/ Calcium (Thera-M Plus) 1 tab DAILY PO Last administered on 08:09; Start 09/19/17 at 09:00 Psyllium Hydrophilic Mucilloid (Metamucil) 1 pkt DAILYWBKFT PO Last administered on 09/25/17 08:09; Start 09/19/17 at 08:00 Tamsulosin HCl (Flomax) 0.4 mg QHS PO Last administered on 09/25/17 19:11; Start 09/18/17 at 21:00 Acetaminophen (Tylenol) 650 mg PRN Q6HRS PRN PO PAIN / TEMP; Start 09/18/17 at 19:15; Status UNV Multi-Ingredient Ointment (Analgesic [place]) 1 eron PRN QID PRN TP MUSCLE PAIN; Start 09/18/17 at 19:15 Al Hydroxide/Mg Hydroxide (Mylanta Plus Xs) 15 ml PRN AFTMEALHC PRN PO DYSPEPSIA; Start 09/18/17 at 19:15 Magnesium Hydroxide (Milk Of Magnesia) 2,400 mg PRN QHS PRN PO CONSTIPATION Last administered on 09/21/17at 14:55; Start 09/18/17 at 19:15 Olanzapine (ZyPREXA ZYDIS) 2.5 mg PRN Q2HR PRN PO PSYCHOSIS Last administered on 09/19/17at 15:29; Start 09/19/17 at 15:30 Sertraline HCl (Zoloft) 50 mg DAILYWBKFT PO Last administered on 09/24/17at 07: 54; Start 09/20/17 at 08:00; Stop 09/24/17 at 18:46; Status DC Quetiapine Fumarate (SEROquel) 25 mg QHS PO Last administered on 09/25/17 19: 11; Start 09/19/17 at 21:00 Magnesium Oxide (Magnesium Oxide) 400 mg TID PO Last administered on 09/25/17 19:11; Start 09/19/17 at 21:00 Levothyroxine Sodium (Synthroid) 100 mcg DAILY06 PO Last administered on at 06:16; Start 09/25/17 at 06:00 Sertraline HCl (Zoloft) 75 mg DAILYWBKFT PO Last administered on 09/25/17at 08: 11; Start 09/25/17 at 08:00 Active Scripts Active Reported Multivitamins (Multivitamin) 1 Each Tablet 1 Tab PO DAILY LAST DOSE GIVEN: DATE: TIME: NEXT DOSE DUE: DATE: TIME: Metamucil Powder (Psyllium Seed (with Sugar)) 575 Gm Powder 5 Gm PO DAILYWBKFT LAST DOSE GIVEN: DATE: TIME: NEXT DOSE DUE: DATE: TIME: Loperamide (Loperamide Hcl) 2 Mg Tablet 2 Mg PO PRN QID PRN LAST DOSE GIVEN: DATE: TIME: NEXT DOSE DUE: DATE: TIME: Glimepiride 1 Mg Tablet 0.5 Mg PO DAILY LAST DOSE GIVEN: DATE: TIME: NEXT DOSE DUE: DATE: TIME: Cortizone-10 1% Creme (Hydrocortisone/Aloe Vera) 28 Gm Cream..g. 1 Eron TP BID PRN LAST DOSE GIVEN: DATE: TIME: NEXT DOSE DUE: DATE: TIME: Celexa (Citalopram Hydrobromide) 40 Mg Tablet 40 Mg PO DAILY LAST DOSE GIVEN: DATE: TIME: NEXT DOSE DUE: DATE: TIME: Levothyroxine Sodium 100 Mcg Tablet 100 Mcg PO DAILYAC LAST DOSE GIVEN: DATE: TIME: NEXT DOSE DUE: DATE: TIME: Fenofibrate (Fenofibrate,Micronized) 200 Mg Capsule 200 Mg PO DAILY08 LAST DOSE GIVEN: DATE: TIME: NEXT DOSE DUE: DATE: TIME: Atorvastatin Calcium 40 Mg Tablet 40 Mg PO HS LAST DOSE GIVEN: DATE: TIME: NEXT DOSE DUE: DATE: TIME: Acetaminophen 500 Mg Tablet 500-1,000 Mg PO PRN Q6HRS PRN LAST DOSE GIVEN: DATE: TIME: NEXT DOSE DUE: DATE: TIME: I have reviewed the current psychotropics carefully including drug interactions. Risk benefit ratio favors no change other than as noted in my dictated progress note. Diagnosis: Problems: (1) Hypomagnesemia (2) Acute kidney injury (3) Anxiety disorder (4) Major depressive disorder, recurrent episode (5) Impulse control disorder (6) Mild cognitive impairment YASMIN DEXTER MD September 25, 2017 20:29
--- NOTE | 2017-09-26 00:30 | PN ---
DATE: 09/24/2017 PSYCHIATRIC PROGRESS NOTE This is a late entry for 09/24/2017, covers elements not covered in my initial note of 09/24/2017. SUBJECTIVE: I met with the patient in the evening. The patient slept 7 hours previous evening. He is confused at times, but otherwise remains somewhat anxious, has a fear of falling. He is starting physical therapy. Appetite is better. REVIEW OF SYSTEMS: Ambulation impaired, in wheelchair. No CV, , pulmonary, eye, ENT system symptoms on review. Reliability fair. MENTAL STATUS EXAM: Oriented to himself and situation. Speech has some latency, coherent. Abstraction fair, computation impaired, language function intact, attention span short. Mood and affect still depressed, but showing some improvement. LABORATORY DATA: Reviewed. IMPRESSION: Major depressive disorder with psychotic features in partial remission; cognitive disorder, unspecified. PLAN: Increase Zoloft to 75 mg a day after he has been on 50 mg for 3 days. Continue Seroquel along with Zyprexa p.r.n. Consider augmentation with Wellbutrin later if single therapy with Zoloft is ineffective. MAN Сергей DEXTER MD DR: NISREEN/maxx JOB#: [id number] / [id number]
[2017-09-26] MEDS: LEVOTHYROXINE 100 MCG TABLET PO SCH (05:39)
[2017-09-26 05:52] VITALS: BP 139/65
[2017-09-26] MEDS: MAGNESIUM OXIDE 400 MG TABLET PO SCH ×3 (08:12→20:15)
[2017-09-26] MEDS: FENOFIBRATE NANOCRYSTALLIZED 145 MG TABLET PO SCH (08:12)
[2017-09-26] MEDS: PSYLLIUM SEED (WITH SUGAR) PACKET. PO SCH (08:13)
[2017-09-26] MEDS: SERTRALINE 50 MG TABLET. PO SCH (08:13)
[2017-09-26] MEDS: MULTIVITAMIN with MINERAL TABLET. PO SCH (08:13)
[2017-09-26 16:05] VITALS: BP 141/62
[2017-09-26] MEDS: QUEtiapine 25 MG TABLET. PO SCH (20:15)
[2017-09-26] MEDS: ATORVASTATIN CALCIUM 20 MG TABLET PO SCH (20:15)
[2017-09-26] MEDS: TAMSULOSIN 0.4 MG CAP.ER.24H. PO SCH (20:15)
[2017-09-26] MEDS: ACETAMINOPHEN 500 MG TABLET PO PRN (20:24)
--- NOTE | 2017-09-26 20:46 | PDOC ---
Exam Note: Percy Note: Please also refer to the separate dictated note~for this date of service dictated separately.~Patient seen individually. Discussed the patient with Nursing staff reviewed the chart.~Reviewed interim history and current functioning. Reviewed vital signs,~Labs/ Radiology~and current medications noted below. Continue current treatment with the changes noted in the dictated addendum note Assessment: Vital Signs: Vital Signs Date Time Temp Pulse Resp B/P (MAP) Pulse Ox O2 Delivery O2 Flow Rate FiO2 09/26/17 16:05 97.1 68 19 141/62 (88) 97 09/24/17 16:40 Room Air I&O Intake and Output 09/26/17 07:00 Intake Total 420 ml Balance 420 ml Intake Oral 420 ml # Bowel Movements 2 Labs: Laboratory Tests Test 09/26/17 07:32 Glucose (Fingerstick) 113 mg/dL (70-99) H Current Medications: Meds: Current Medications Levothyroxine Sodium (Synthroid) 100 mcg DAILYAC PO Last administered on at 07:54; Start 09/19/17 at 07:30; Stop 09/24/17 at 16:59; Status DC Acetaminophen (Tylenol) 1,000 mg PRN Q6HRS PRN PO PAIN / TEMP Last administered on 09/26/17at 20:24; Start 09/18/17 at 20:00 Atorvastatin Calcium (Lipitor) 40 mg QHS PO Last administered on 09/26/17at 20: 15; Start 09/18/17 at 21:00 Citalopram Hydrobromide (CeleXA) 40 mg DAILY PO Last administered on 09/19/17at 08:31; Start 09/19/17 at 09:00; Stop 09/19/17 at 18:17; Status DC Fenofibrate (Tricor) 145 mg DAILY PO Last administered on 09/26/17at 08:12; Start 09/19/17 at 09:00 Glimepiride (Amaryl) 0.5 mg DAILY PO Last administered on 09/19/17at 08:32; Start 09/19/17 at 09:00; Stop 09/19/17 at 18:47; Status DC Hydrocortisone (Cortaid) 1 eron PRN BID PRN TP ECZEMA/DRY SKIN; Start 09/18/17 at 20:00 Loperamide HCl (Imodium) 2 mg PRN QID PRN PO DIARRHEA; Start 09/18/17 at 20:00 Multivitamins/ Calcium (Thera-M Plus) 1 tab DAILY PO Last administered on 08:13; Start 09/19/17 at 09:00 Psyllium Hydrophilic Mucilloid (Metamucil) 1 pkt DAILYWBKFT PO Last administered on 09/26/17 08:13; Start 09/19/17 at 08:00; Stop 09/26/17 at 16:25 ; Status DC Tamsulosin HCl (Flomax) 0.4 mg QHS PO Last administered on 09/26/17 20:15; Start 09/18/17 at 21:00 Acetaminophen (Tylenol) 650 mg PRN Q6HRS PRN PO PAIN / TEMP; Start 09/18/17 at 19:15; Status UNV Multi-Ingredient Ointment (Analgesic [place]) 1 eron PRN QID PRN TP MUSCLE PAIN; Start 09/18/17 at 19:15 Al Hydroxide/Mg Hydroxide (Mylanta Plus Xs) 15 ml PRN AFTMEALHC PRN PO DYSPEPSIA; Start 09/18/17 at 19:15 Magnesium Hydroxide (Milk Of Magnesia) 2,400 mg PRN QHS PRN PO CONSTIPATION Last administered on 09/21/17at 14:55; Start 09/18/17 at 19:15 Olanzapine (ZyPREXA ZYDIS) 2.5 mg PRN Q2HR PRN PO PSYCHOSIS Last administered on 09/19/17at 15:29; Start 09/19/17 at 15:30 Sertraline HCl (Zoloft) 50 mg DAILYWBKFT PO Last administered on 09/24/17at 07: 54; Start 09/20/17 at 08:00; Stop 09/24/17 at 18:46; Status DC Quetiapine Fumarate (SEROquel) 25 mg QHS PO Last administered on 09/26/17 20: 15; Start 09/19/17 at 21:00 Magnesium Oxide (Magnesium Oxide) 400 mg TID PO Last administered on 09/26/17at 20:15; Start 09/19/17 at 21:00 Levothyroxine Sodium (Synthroid) 100 mcg DAILY06 PO Last administered on 5/24/ 18at 05:39; Start 09/25/17 at 06:00 Sertraline HCl (Zoloft) 75 mg DAILYWBKFT PO Last administered on 09/26/17at 08: 13; Start 09/25/17 at 08:00 Active Scripts Active Reported Multivitamins (Multivitamin) 1 Each Tablet 1 Tab PO DAILY LAST DOSE GIVEN: DATE: TIME: NEXT DOSE DUE: DATE: TIME: Metamucil Powder (Psyllium Seed (with Sugar)) 575 Gm Powder 5 Gm PO DAILYWBKFT LAST DOSE GIVEN: DATE: TIME: NEXT DOSE DUE: DATE: TIME: Loperamide (Loperamide Hcl) 2 Mg Tablet 2 Mg PO PRN QID PRN LAST DOSE GIVEN: DATE: TIME: NEXT DOSE DUE: DATE: TIME: Glimepiride 1 Mg Tablet 0.5 Mg PO DAILY LAST DOSE GIVEN: DATE: TIME: NEXT DOSE DUE: DATE: TIME: Cortizone-10 1% Creme (Hydrocortisone/Aloe Vera) 28 Gm Cream..g. 1 Eron TP BID PRN LAST DOSE GIVEN: DATE: TIME: NEXT DOSE DUE: DATE: TIME: Celexa (Citalopram Hydrobromide) 40 Mg Tablet 40 Mg PO DAILY LAST DOSE GIVEN: DATE: TIME: NEXT DOSE DUE: DATE: TIME: Levothyroxine Sodium 100 Mcg Tablet 100 Mcg PO DAILYAC LAST DOSE GIVEN: DATE: TIME: NEXT DOSE DUE: DATE: TIME: Fenofibrate (Fenofibrate,Micronized) 200 Mg Capsule 200 Mg PO DAILY08 LAST DOSE GIVEN: DATE: TIME: NEXT DOSE DUE: DATE: TIME: Atorvastatin Calcium 40 Mg Tablet 40 Mg PO HS LAST DOSE GIVEN: DATE: TIME: NEXT DOSE DUE: DATE: TIME: Acetaminophen 500 Mg Tablet 500-1,000 Mg PO PRN Q6HRS PRN LAST DOSE GIVEN: DATE: TIME: NEXT DOSE DUE: DATE: TIME: I have reviewed the current psychotropics carefully including drug interactions. Risk benefit ratio favors no change other than as noted in my dictated progress note. Diagnosis: Problems: (1) Hypomagnesemia (2) Acute kidney injury (3) Anxiety disorder (4) Major depressive disorder, recurrent episode (5) Impulse control disorder (6) Mild cognitive impairment YASMIN DEXTER MD September 26, 2017 20:46
[2017-09-27 05:13] VITALS: BP 122/59
[2017-09-27] MEDS: LEVOTHYROXINE 100 MCG TABLET PO SCH (06:19)
[2017-09-27 07:39] LABS: BASO % 1 % (0-3); EOS # 0.2 x10^3/uL (0.0-0.7); EOS % 2 % (0-3); HEMATOCRIT 33.9 % (39.0-53.0); HEMOGLOBIN 11.2 g/dL (13.0-17.5); LYMPH # 1.7 x10^3/uL (1.0-4.8); LYMPH % 17 % (24-48); MEAN CORPUSCULAR HEMOGLOBIN 28 pg (25-35); MEAN CORPUSCULAR HGB CONC 33 g/dL (31-37); MEAN CORPUSCULAR VOLUME 85 fL (79-100); MONO # 0.5 x10^3/uL (0.0-1.1); MONO % 5 % (0-9); NEUT # 7.3 x10^3uL (1.8-7.7); NEUT % 75 % (31-73); PLATELET COUNT 381 x10^3/uL (140-400); WHITE BLOOD COUNT 9.8 x10^3/uL (4.0-11.0)
[2017-09-27 07:49] LABS: ALBUMIN 2.8 g/dL (3.4-5.0); ALBUMIN/GLOBULIN RATIO 0.7 (1.0-1.7); CREATININE 1.3 mg/dL (0.7-1.3); GFR 52.7; POTASSIUM 4.3 mmol/L (3.5-5.1); TOTAL BILIRUBIN 0.4 mg/dL (0.2-1.0); TOTAL PROTEIN 6.8 g/dL (6.4-8.2)
[2017-09-27] MEDS: MAGNESIUM OXIDE 400 MG TABLET PO SCH ×3 (08:37→20:02)
[2017-09-27] MEDS: FENOFIBRATE NANOCRYSTALLIZED 145 MG TABLET PO SCH (08:37)
[2017-09-27] MEDS: MULTIVITAMIN with MINERAL TABLET. PO SCH (08:37)
[2017-09-27] MEDS: SERTRALINE 50 MG TABLET. PO SCH (08:37)
[2017-09-27 16:18] VITALS: BP 132/59
--- NOTE | 2017-09-27 19:51 | PDOC ---
Exam Note: Percy Note: Please also refer to the separate dictated note~for this date of service dictated separately.~Patient seen individually. Discussed the patient with Nursing staff reviewed the chart.~Reviewed interim history and current functioning. Reviewed vital signs,~Labs/ Radiology~and current medications noted below. Continue current treatment with the changes noted in the dictated addendum note Assessment: Vital Signs: Vital Signs Date Time Temp Pulse Resp B/P (MAP) Pulse Ox O2 Delivery O2 Flow Rate FiO2 09/27/17 16:18 98.0 62 18 132/59 (83) 98 Room Air I&O Intake and Output 09/27/17 07:00 Intake Total 1560 ml Balance 1560 ml Intake Oral 1560 ml # Bowel Movements 1 Labs: Laboratory Tests Test 09/27/17 07:02 09/27/17 07:30 09/27/17 19:32 White Blood Count 9.8 x10^3/uL (4.0-11.0) Red Blood Count 4.00 x10^6/uL (4.30-5.70) L Hemoglobin 11.2 g/dL (13.0-17.5) L Hematocrit 33.9 % (39.0-53.0) L Mean Corpuscular Volume 85 fL (79-100) Mean Corpuscular Hemoglobin 28 pg (25-35) Mean Corpuscular Hemoglobin Concent 33 g/dL (31-37) Red Cell Distribution Width 16.0 % (11.5-14.5) H Platelet Count 381 x10^3/uL (140-400) Neutrophils (%) (Auto) 75 % (31-73) H Lymphocytes (%) (Auto) 17 % (24-48) L Monocytes (%) (Auto) 5 % (0-9) Eosinophils (%) (Auto) 2 % (0-3) Basophils (%) (Auto) 1 % (0-3) Neutrophils # (Auto) 7.3 x10^3uL (1.8-7.7) Lymphocytes # (Auto) 1.7 x10^3/uL (1.0-4.8) Monocytes # (Auto) 0.5 x10^3/uL (0.0-1.1) Eosinophils # (Auto) 0.2 x10^3/uL (0.0-0.7) Basophils # (Auto) 0.0 x10^3/uL (0.0-0.2) Sodium Level 138 mmol/L (136-145) Potassium Level 4.3 mmol/L (3.5-5.1) Chloride Level 102 mmol/L (98-107) Carbon Dioxide Level 29 mmol/L (21-32) Anion Gap 7 (6-14) Blood Urea Nitrogen 21 mg/dL (8-26) Creatinine 1.3 mg/dL (0.7-1.3) Estimated GFR (Cockcroft-Gault) 52.7 BUN/Creatinine Ratio 16 (6-20) Glucose Level 116 mg/dL (70-99) H Calcium Level 9.0 mg/dL (8.5-10.1) Magnesium Level 2.0 mg/dL (1.8-2.4) Total Bilirubin 0.4 mg/dL (0.2-1.0) Aspartate Amino Transferase (AST) 70 U/L (15-37) H Alanine Aminotransferase (ALT) 58 U/L (16-63) Alkaline Phosphatase 169 U/L (46-116) H Total Protein 6.8 g/dL (6.4-8.2) Albumin 2.8 g/dL (3.4-5.0) L Albumin/Globulin Ratio 0.7 (1.0-1.7) L Glucose (Fingerstick) 118 mg/dL (70-99) H 351 mg/dL (70-99) H Current Medications: Meds: Current Medications Levothyroxine Sodium (Synthroid) 100 mcg DAILYAC PO Last administered on at 07:54; Start 09/19/17 at 07:30; Stop 09/24/17 at 16:59; Status DC Acetaminophen (Tylenol) 1,000 mg PRN Q6HRS PRN PO PAIN / TEMP Last administered on 09/26/17at 20:24; Start 09/18/17 at 20:00 Atorvastatin Calcium (Lipitor) 40 mg QHS PO Last administered on 09/26/17at 20: 15; Start 09/18/17 at 21:00 Citalopram Hydrobromide (CeleXA) 40 mg DAILY PO Last administered on 09/19/17at 08:31; Start 09/19/17 at 09:00; Stop 09/19/17 at 18:17; Status DC Fenofibrate (Tricor) 145 mg DAILY PO Last administered on 09/27/17at 08:37; Start 09/19/17 at 09:00 Glimepiride (Amaryl) 0.5 mg DAILY PO Last administered on 09/19/17at 08:32; Start 09/19/17 at 09:00; Stop 09/19/17 at 18:47; Status DC Hydrocortisone (Cortaid) 1 eron PRN BID PRN TP ECZEMA/DRY SKIN; Start 09/18/17 at 20:00 Loperamide HCl (Imodium) 2 mg PRN QID PRN PO DIARRHEA; Start 09/18/17 at 20:00 Multivitamins/ Calcium (Thera-M Plus) 1 tab DAILY PO Last administered on at 08:37; Start 09/19/17 at 09:00 Psyllium Hydrophilic Mucilloid (Metamucil) 1 pkt DAILYWBKFT PO Last administered on 09/26/17at 08:13; Start 09/19/17 at 08:00; Stop 09/26/17 at 16:25 ; Status DC Tamsulosin HCl (Flomax) 0.4 mg QHS PO Last administered on 09/26/17at 20:15; Start 09/18/17 at 21:00 Acetaminophen (Tylenol) 650 mg PRN Q6HRS PRN PO PAIN / TEMP; Start 09/18/17 at 19:15; Status UNV Multi-Ingredient Ointment (Analgesic [place]) 1 eron PRN QID PRN TP MUSCLE PAIN; Start 09/18/17 at 19:15 Al Hydroxide/Mg Hydroxide (Mylanta Plus Xs) 15 ml PRN AFTMEALHC PRN PO DYSPEPSIA; Start 09/18/17 at 19:15 Magnesium Hydroxide (Milk Of Magnesia) 2,400 mg PRN QHS PRN PO CONSTIPATION Last administered on 09/21/17at 14:55; Start 09/18/17 at 19:15 Olanzapine (ZyPREXA ZYDIS) 2.5 mg PRN Q2HR PRN PO PSYCHOSIS Last administered on 09/19/17at 15:29; Start 09/19/17 at 15:30 Sertraline HCl (Zoloft) 50 mg DAILYWBKFT PO Last administered on 09/24/17at 07: 54; Start 09/20/17 at 08:00; Stop 09/24/17 at 18:46; Status DC Quetiapine Fumarate (SEROquel) 25 mg QHS PO Last administered on 09/26/17at 20: 15; Start 09/19/17 at 21:00 Magnesium Oxide (Magnesium Oxide) 400 mg TID PO Last administered on 09/27/17at 14:02; Start 09/19/17 at 21:00 Levothyroxine Sodium (Synthroid) 100 mcg DAILY06 PO Last administered on at 06:19; Start 09/25/17 at 06:00 Sertraline HCl (Zoloft) 75 mg DAILYWBKFT PO Last administered on 09/27/17at 08: 37; Start 09/25/17 at 08:00 Active Scripts Active Reported Multivitamins (Multivitamin) 1 Each Tablet 1 Tab PO DAILY LAST DOSE GIVEN: DATE: TIME: NEXT DOSE DUE: DATE: TIME: Metamucil Powder (Psyllium Seed (with Sugar)) 575 Gm Powder 5 Gm PO DAILYWBKFT LAST DOSE GIVEN: DATE: TIME: NEXT DOSE DUE: DATE: TIME: Loperamide (Loperamide Hcl) 2 Mg Tablet 2 Mg PO PRN QID PRN LAST DOSE GIVEN: DATE: TIME: NEXT DOSE DUE: DATE: TIME: Glimepiride 1 Mg Tablet 0.5 Mg PO DAILY LAST DOSE GIVEN: DATE: TIME: NEXT DOSE DUE: DATE: TIME: Cortizone-10 1% Creme (Hydrocortisone/Aloe Vera) 28 Gm Cream..g. 1 Eron TP BID PRN LAST DOSE GIVEN: DATE: TIME: NEXT DOSE DUE: DATE: TIME: Celexa (Citalopram Hydrobromide) 40 Mg Tablet 40 Mg PO DAILY LAST DOSE GIVEN: DATE: TIME: NEXT DOSE DUE: DATE: TIME: Levothyroxine Sodium 100 Mcg Tablet 100 Mcg PO DAILYAC LAST DOSE GIVEN: DATE: TIME: NEXT DOSE DUE: DATE: TIME: Fenofibrate (Fenofibrate,Micronized) 200 Mg Capsule 200 Mg PO DAILY08 LAST DOSE GIVEN: DATE: TIME: NEXT DOSE DUE: DATE: TIME: Atorvastatin Calcium 40 Mg Tablet 40 Mg PO HS LAST DOSE GIVEN: DATE: TIME: NEXT DOSE DUE: DATE: TIME: Acetaminophen 500 Mg Tablet 500-1,000 Mg PO PRN Q6HRS PRN LAST DOSE GIVEN: DATE: TIME: NEXT DOSE DUE: DATE: TIME: I have reviewed the current psychotropics carefully including drug interactions. Risk benefit ratio favors no change other than as noted in my dictated progress note. Diagnosis: Problems: (1) Hypomagnesemia (2) Acute kidney injury (3) Anxiety disorder (4) Major depressive disorder, recurrent episode (5) Impulse control disorder (6) Mild cognitive impairment YASMIN DEXTER MD September 27, 2017 19:51
[2017-09-27] MEDS: ATORVASTATIN CALCIUM 20 MG TABLET PO SCH (20:02)
[2017-09-27] MEDS: QUEtiapine 25 MG TABLET. PO SCH (20:02)
[2017-09-27] MEDS: TAMSULOSIN 0.4 MG CAP.ER.24H. PO SCH (20:03)
--- NOTE | 2017-09-27 21:15 | PN ---
DATE: 09/25/2017 This late entry for 09/25/2017 covers elements not covered in my initial note on this patient. SUBJECTIVE: The patient was seen individually in the evening of 09/25/2017. The patient remains somewhat depressed, withdrawn, but appetite is better. Slept 7-1/4 hours. Behaviorally, he is less agitated, less withdrawn. REVIEW OF SYSTEMS: Ambulation impaired, in wheelchair. No CV, , pulmonary, eye system symptoms on review. MENTAL STATUS EXAM: Oriented to himself and situation. Speech has some latency, coherent. Abstraction fair, computation impaired, language function intact. Mood and affect showing improvement. He was verbal, open, more forthcoming as I met with him. LABORATORY DATA: Reviewed. IMPRESSION: Major depressive disorder in partial remission with 25-pound weight loss in 9 months. Rest unchanged from earlier note. PLAN: Continue psychotropics mentioned in my initial note. MAN Сергей DEXTER MD DR: NISREEN/maxx JOB#: [id number] / [id number]
--- NOTE | 2017-09-27 21:17 | PN ---
DATE: 09/26/2017 This is a late entry of 09/26/2017 covers elements not covered in my initial note of 09/26/2017. SUBJECTIVE: I met with the patient in the evening and staffed at a treatment team meeting with the entire team in the morning. The patient slept 8-1/2 hours. He is doing better rolling himself around. Complains of bottom hurting at times. Nursing are addressing this. He has been accepted at [facility]. He has gained 2 pounds since admission. REVIEW OF SYSTEMS: Ambulation impaired, in wheelchair. No CV, , pulmonary, eye system symptoms on review. Very verbal and open as I met with him individually. MENTAL STATUS EXAM: Reasonably oriented. Speech is coherent, abstraction fair, computation impaired, language function intact, attention span short. Mood and affect showing improvement. IMPRESSION: Major depressive disorder, recurrent, in partial remission. PLAN: Continue psychotropics mentioned in my initial note. He has been accepted at [facility] for next week. MAN Сергей DEXTER MD DR: NISREEN/maxx JOB#: [id number] / [id number]
[2017-09-28] MEDS: LEVOTHYROXINE 100 MCG TABLET PO SCH (05:41)
[2017-09-28 06:25] VITALS: BP 121/67
[2017-09-28] MEDS: MAGNESIUM OXIDE 400 MG TABLET PO SCH ×3 (08:36→21:42)
[2017-09-28] MEDS: MULTIVITAMIN with MINERAL TABLET. PO SCH (08:37)
[2017-09-28] MEDS: FENOFIBRATE NANOCRYSTALLIZED 145 MG TABLET PO SCH (08:37)
[2017-09-28] MEDS: SERTRALINE 50 MG TABLET. PO SCH (08:37)
[2017-09-28 16:22] VITALS: BP 129/63
[2017-09-28] MEDS: TAMSULOSIN 0.4 MG CAP.ER.24H. PO SCH (21:42)
[2017-09-28] MEDS: ATORVASTATIN CALCIUM 20 MG TABLET PO SCH (21:42)
[2017-09-28] MEDS: QUEtiapine 25 MG TABLET. PO SCH (21:42)
--- NOTE | 2017-09-28 23:22 | PDOC ---
Exam Note: Percy Note: Please also refer to the separate dictated note~for this date of service dictated separately.~Patient seen individually. Discussed the patient with Nursing staff reviewed the chart.~Reviewed interim history and current functioning. Reviewed vital signs,~Labs/ Radiology~and current medications noted below. Continue current treatment with the changes noted in the dictated addendum note Assessment: Vital Signs: Vital Signs Date Time Temp Pulse Resp B/P (MAP) Pulse Ox O2 Delivery O2 Flow Rate FiO2 09/28/17 16:22 98.4 78 20 129/63 (85) 96 Room Air I&O Intake and Output 09/28/17 07:00 Intake Total 1320 ml Balance 1320 ml Intake Oral 1320 ml # Bowel Movements 1 Labs: Laboratory Tests Test 09/28/17 07:35 09/28/17 19:18 Glucose (Fingerstick) 125 mg/dL (70-99) H 247 mg/dL (70-99) H Current Medications: Meds: Current Medications Levothyroxine Sodium (Synthroid) 100 mcg DAILYAC PO Last administered on at 07:54; Start 09/19/17 at 07:30; Stop 09/24/17 at 16:59; Status DC Acetaminophen (Tylenol) 1,000 mg PRN Q6HRS PRN PO PAIN / TEMP Last administered on 09/26/17at 20:24; Start 09/18/17 at 20:00 Atorvastatin Calcium (Lipitor) 40 mg QHS PO Last administered on 09/28/17at 21: 42; Start 09/18/17 at 21:00 Citalopram Hydrobromide (CeleXA) 40 mg DAILY PO Last administered on 09/19/17at 08:31; Start 09/19/17 at 09:00; Stop 09/19/17 at 18:17; Status DC Fenofibrate (Tricor) 145 mg DAILY PO Last administered on 09/28/17at 08:37; Start 09/19/17 at 09:00 Glimepiride (Amaryl) 0.5 mg DAILY PO Last administered on 09/19/17at 08:32; Start 09/19/17 at 09:00; Stop 09/19/17 at 18:47; Status DC Hydrocortisone (Cortaid) 1 eron PRN BID PRN TP ECZEMA/DRY SKIN; Start 09/18/17 at 20:00 Loperamide HCl (Imodium) 2 mg PRN QID PRN PO DIARRHEA; Start 09/18/17 at 20:00 Multivitamins/ Calcium (Thera-M Plus) 1 tab DAILY PO Last administered on at 08:37; Start 09/19/17 at 09:00 Psyllium Hydrophilic Mucilloid (Metamucil) 1 pkt DAILYWBKFT PO Last administered on 09/26/17at 08:13; Start 09/19/17 at 08:00; Stop 09/26/17 at 16:25 ; Status DC Tamsulosin HCl (Flomax) 0.4 mg QHS PO Last administered on 09/28/17at 21:42; Start 09/18/17 at 21:00 Acetaminophen (Tylenol) 650 mg PRN Q6HRS PRN PO PAIN / TEMP; Start 09/18/17 at 19:15; Status UNV Multi-Ingredient Ointment (Analgesic [place]) 1 eron PRN QID PRN TP MUSCLE PAIN; Start 09/18/17 at 19:15 Al Hydroxide/Mg Hydroxide (Mylanta Plus Xs) 15 ml PRN AFTMEALHC PRN PO DYSPEPSIA; Start 09/18/17 at 19:15 Magnesium Hydroxide (Milk Of Magnesia) 2,400 mg PRN QHS PRN PO CONSTIPATION Last administered on 09/21/17at 14:55; Start 09/18/17 at 19:15 Olanzapine (ZyPREXA ZYDIS) 2.5 mg PRN Q2HR PRN PO PSYCHOSIS Last administered on 09/19/17at 15:29; Start 09/19/17 at 15:30 Sertraline HCl (Zoloft) 50 mg DAILYWBKFT PO Last administered on 09/24/17at 07: 54; Start 09/20/17 at 08:00; Stop 09/24/17 at 18:46; Status DC Quetiapine Fumarate (SEROquel) 25 mg QHS PO Last administered on 09/28/17at 21: 42; Start 09/19/17 at 21:00 Magnesium Oxide (Magnesium Oxide) 400 mg TID PO Last administered on 09/28/17at 21:42; Start 09/19/17 at 21:00 Levothyroxine Sodium (Synthroid) 100 mcg DAILY06 PO Last administered on at 05:41; Start 09/25/17 at 06:00 Sertraline HCl (Zoloft) 75 mg DAILYWBKFT PO Last administered on 09/28/17at 08: 37; Start 09/25/17 at 08:00 Active Scripts Active Reported Multivitamins (Multivitamin) 1 Each Tablet 1 Tab PO DAILY LAST DOSE GIVEN: DATE: TIME: NEXT DOSE DUE: DATE: TIME: Metamucil Powder (Psyllium Seed (with Sugar)) 575 Gm Powder 5 Gm PO DAILYWBKFT LAST DOSE GIVEN: DATE: TIME: NEXT DOSE DUE: DATE: TIME: Loperamide (Loperamide Hcl) 2 Mg Tablet 2 Mg PO PRN QID PRN LAST DOSE GIVEN: DATE: TIME: NEXT DOSE DUE: DATE: TIME: Glimepiride 1 Mg Tablet 0.5 Mg PO DAILY LAST DOSE GIVEN: DATE: TIME: NEXT DOSE DUE: DATE: TIME: Cortizone-10 1% Creme (Hydrocortisone/Aloe Vera) 28 Gm Cream..g. 1 Eron TP BID PRN LAST DOSE GIVEN: DATE: TIME: NEXT DOSE DUE: DATE: TIME: Celexa (Citalopram Hydrobromide) 40 Mg Tablet 40 Mg PO DAILY LAST DOSE GIVEN: DATE: TIME: NEXT DOSE DUE: DATE: TIME: Levothyroxine Sodium 100 Mcg Tablet 100 Mcg PO DAILYAC LAST DOSE GIVEN: DATE: TIME: NEXT DOSE DUE: DATE: TIME: Fenofibrate (Fenofibrate,Micronized) 200 Mg Capsule 200 Mg PO DAILY08 LAST DOSE GIVEN: DATE: TIME: NEXT DOSE DUE: DATE: TIME: Atorvastatin Calcium 40 Mg Tablet 40 Mg PO HS LAST DOSE GIVEN: DATE: TIME: NEXT DOSE DUE: DATE: TIME: Acetaminophen 500 Mg Tablet 500-1,000 Mg PO PRN Q6HRS PRN LAST DOSE GIVEN: DATE: TIME: NEXT DOSE DUE: DATE: TIME: I have reviewed the current psychotropics carefully including drug interactions. Risk benefit ratio favors no change other than as noted in my dictated progress note. Diagnosis: Problems: (1) Anxiety disorder (2) Major depressive disorder, recurrent episode (3) Impulse control disorder (4) Mild cognitive impairment YASMIN DEXTER MD September 28, 2017 23:22
[2017-09-29] MEDS: LEVOTHYROXINE 100 MCG TABLET PO SCH (05:41)
[2017-09-29 06:19] VITALS: BP 125/57
[2017-09-29] MEDS: SERTRALINE 50 MG TABLET. PO SCH (08:22)
[2017-09-29] MEDS: MAGNESIUM OXIDE 400 MG TABLET PO SCH ×3 (08:22→20:26)
[2017-09-29] MEDS: MULTIVITAMIN with MINERAL TABLET. PO SCH (08:22)
[2017-09-29] MEDS: FENOFIBRATE NANOCRYSTALLIZED 145 MG TABLET PO SCH (08:22)
[2017-09-29 16:46] VITALS: BP 190/65
[2017-09-29] MEDS: TAMSULOSIN 0.4 MG CAP.ER.24H. PO SCH (20:26)
[2017-09-29] MEDS: ATORVASTATIN CALCIUM 20 MG TABLET PO SCH (20:26)
[2017-09-29] MEDS: QUEtiapine 25 MG TABLET. PO SCH (20:26)
--- NOTE | 2017-09-29 20:56 | PDOC ---
Exam Note: Percy Note: Please also refer to the separate dictated note~for this date of service dictated separately.~Patient seen individually. Discussed the patient with Nursing staff reviewed the chart.~Reviewed interim history and current functioning. Reviewed vital signs,~Labs/ Radiology~and current medications noted below. Continue current treatment with the changes noted in the dictated addendum note Assessment: Vital Signs: Vital Signs Date Time Temp Pulse Resp B/P (MAP) Pulse Ox O2 Delivery O2 Flow Rate FiO2 09/29/17 16:46 98.0 64 18 190/65 (106) 96 09/28/17 16:22 Room Air I&O Intake and Output 09/29/17 07:00 Intake Total 1320 ml Balance 1320 ml Intake Oral 1320 ml Labs: Laboratory Tests Test 09/29/17 07:46 09/29/17 19:50 Glucose (Fingerstick) 115 mg/dL (70-99) H 277 mg/dL (70-99) H Current Medications: Meds: Current Medications Levothyroxine Sodium (Synthroid) 100 mcg DAILYAC PO Last administered on at 07:54; Start 09/19/17 at 07:30; Stop 09/24/17 at 16:59; Status DC Acetaminophen (Tylenol) 1,000 mg PRN Q6HRS PRN PO PAIN / TEMP Last administered on 09/26/17at 20:24; Start 09/18/17 at 20:00 Atorvastatin Calcium (Lipitor) 40 mg QHS PO Last administered on 09/29/17at 20: 26; Start 09/18/17 at 21:00 Citalopram Hydrobromide (CeleXA) 40 mg DAILY PO Last administered on 09/19/17at 08:31; Start 09/19/17 at 09:00; Stop 09/19/17 at 18:17; Status DC Fenofibrate (Tricor) 145 mg DAILY PO Last administered on 09/29/17at 08:22; Start 09/19/17 at 09:00 Glimepiride (Amaryl) 0.5 mg DAILY PO Last administered on 09/19/17at 08:32; Start 09/19/17 at 09:00; Stop 09/19/17 at 18:47; Status DC Hydrocortisone (Cortaid) 1 eron PRN BID PRN TP ECZEMA/DRY SKIN; Start 09/18/17 at 20:00 Loperamide HCl (Imodium) 2 mg PRN QID PRN PO DIARRHEA; Start 09/18/17 at 20:00 Multivitamins/ Calcium (Thera-M Plus) 1 tab DAILY PO Last administered on at 08:22; Start 09/19/17 at 09:00 Psyllium Hydrophilic Mucilloid (Metamucil) 1 pkt DAILYWBKFT PO Last administered on 09/26/17at 08:13; Start 09/19/17 at 08:00; Stop 09/26/17 at 16:25 ; Status DC Tamsulosin HCl (Flomax) 0.4 mg QHS PO Last administered on 09/29/17at 20:26; Start 09/18/17 at 21:00 Acetaminophen (Tylenol) 650 mg PRN Q6HRS PRN PO PAIN / TEMP; Start 09/18/17 at 19:15; Status UNV Multi-Ingredient Ointment (Analgesic [place]) 1 eron PRN QID PRN TP MUSCLE PAIN; Start 09/18/17 at 19:15 Al Hydroxide/Mg Hydroxide (Mylanta Plus Xs) 15 ml PRN AFTMEALHC PRN PO DYSPEPSIA; Start 09/18/17 at 19:15 Magnesium Hydroxide (Milk Of Magnesia) 2,400 mg PRN QHS PRN PO CONSTIPATION Last administered on 09/21/17at 14:55; Start 09/18/17 at 19:15 Olanzapine (ZyPREXA ZYDIS) 2.5 mg PRN Q2HR PRN PO PSYCHOSIS Last administered on 09/19/17at 15:29; Start 09/19/17 at 15:30 Sertraline HCl (Zoloft) 50 mg DAILYWBKFT PO Last administered on 09/24/17at 07: 54; Start 09/20/17 at 08:00; Stop 09/24/17 at 18:46; Status DC Quetiapine Fumarate (SEROquel) 25 mg QHS PO Last administered on 09/29/17at 20: 26; Start 09/19/17 at 21:00 Magnesium Oxide (Magnesium Oxide) 400 mg TID PO Last administered on 09/29/17at 20:26; Start 09/19/17 at 21:00 Levothyroxine Sodium (Synthroid) 100 mcg DAILY06 PO Last administered on at 05:41; Start 09/25/17 at 06:00 Sertraline HCl (Zoloft) 75 mg DAILYWBKFT PO Last administered on 09/29/17at 08: 22; Start 09/25/17 at 08:00 Active Scripts Active Reported Multivitamins (Multivitamin) 1 Each Tablet 1 Tab PO DAILY LAST DOSE GIVEN: DATE: TIME: NEXT DOSE DUE: DATE: TIME: Metamucil Powder (Psyllium Seed (with Sugar)) 575 Gm Powder 5 Gm PO DAILYWBKFT LAST DOSE GIVEN: DATE: TIME: NEXT DOSE DUE: DATE: TIME: Loperamide (Loperamide Hcl) 2 Mg Tablet 2 Mg PO PRN QID PRN LAST DOSE GIVEN: DATE: TIME: NEXT DOSE DUE: DATE: TIME: Glimepiride 1 Mg Tablet 0.5 Mg PO DAILY LAST DOSE GIVEN: DATE: TIME: NEXT DOSE DUE: DATE: TIME: Cortizone-10 1% Creme (Hydrocortisone/Aloe Vera) 28 Gm Cream..g. 1 Eron TP BID PRN LAST DOSE GIVEN: DATE: TIME: NEXT DOSE DUE: DATE: TIME: Celexa (Citalopram Hydrobromide) 40 Mg Tablet 40 Mg PO DAILY LAST DOSE GIVEN: DATE: TIME: NEXT DOSE DUE: DATE: TIME: Levothyroxine Sodium 100 Mcg Tablet 100 Mcg PO DAILYAC LAST DOSE GIVEN: DATE: TIME: NEXT DOSE DUE: DATE: TIME: Fenofibrate (Fenofibrate,Micronized) 200 Mg Capsule 200 Mg PO DAILY08 LAST DOSE GIVEN: DATE: TIME: NEXT DOSE DUE: DATE: TIME: Atorvastatin Calcium 40 Mg Tablet 40 Mg PO HS LAST DOSE GIVEN: DATE: TIME: NEXT DOSE DUE: DATE: TIME: Acetaminophen 500 Mg Tablet 500-1,000 Mg PO PRN Q6HRS PRN LAST DOSE GIVEN: DATE: TIME: NEXT DOSE DUE: DATE: TIME: I have reviewed the current psychotropics carefully including drug interactions. Risk benefit ratio favors no change other than as noted in my dictated progress note. Diagnosis: Problems: (1) Hypomagnesemia (2) Acute kidney injury (3) Anxiety disorder (4) Major depressive disorder, recurrent episode (5) Impulse control disorder (6) Mild cognitive impairment YASMIN DEXTER MD September 29, 2017 20:56
[2017-09-30] MEDS: LEVOTHYROXINE 100 MCG TABLET PO SCH (05:07)
[2017-09-30] MEDS: ACETAMINOPHEN 500 MG TABLET PO PRN ×2 (05:10→14:48)
[2017-09-30 06:31] VITALS: BP 118/65
[2017-09-30] MEDS: MULTIVITAMIN with MINERAL TABLET. PO SCH (09:02)
[2017-09-30] MEDS: SERTRALINE 50 MG TABLET. PO SCH (09:02)
[2017-09-30] MEDS: MAGNESIUM OXIDE 400 MG TABLET PO SCH ×3 (09:02→21:08)
[2017-09-30] MEDS: FENOFIBRATE NANOCRYSTALLIZED 145 MG TABLET PO SCH (09:02)
[2017-09-30 15:42] VITALS: BP 131/62
--- NOTE | 2017-09-30 20:05 | PN ---
DATE: 09/28/2017 PSYCHIATRIC PROGRESS NOTE This is a late entry for 09/28/2017, covers the elements not covered in my initial note of 09/28/2017. I met with the patient in the evening. The patient slept 6-3/4 hours previous evening. He has some skin breakdown on the bottom. Nursing staff are addressing this. He has a waffle cushion as well to help. REVIEW OF SYSTEMS: Ambulation impaired, in wheelchair. No CV, , pulmonary, eye, ENT system symptoms on review. MENTAL STATUS EXAM: Oriented to himself and situation. Speech moderate latency, often responses monosyllabic. Abstraction fair, computation impaired, language function intact. Mood and affect still somewhat dysphoric, depressed, but improved. LABORATORY DATA: Reviewed. IMPRESSION: Unchanged from initial note, major depressive disorder, recurrent, in partial remission; anxiety disorder, unspecified; weight loss of 25 pounds in 9 months, slowly recovering. PLAN: Continue psychotropics mentioned in my initial note. MAN Сергей DEXTER MD DR: NISREEN/maxx JOB#: [id number] / [id number]
--- NOTE | 2017-09-30 20:09 | PN ---
DATE: 09/27/2017 PSYCHIATRIC PROGRESS NOTE This is a late entry for 09/27/2017, covers the elements not covered in my initial note of 09/27/2017. SUBJECTIVE: I met with the patient in the evening. The patient has had a slightly better appetite, still depressed, withdrawn, but less so than before. REVIEW OF SYSTEMS: Ambulation impaired, in wheelchair. No CV, , pulmonary, eye, ENT system symptoms on review. Reliability fair. MENTAL STATUS EXAM: Oriented to himself and situation. Speech has some latency, coherent. Abstraction fair, computation impaired, language function intact, attention span short. Mood and affect less depressed. LABORATORY DATA: Reviewed. IMPRESSION: Unchanged from initial note. PLAN: Continue Zoloft, Seroquel Along with Zyprexa p.r.n. MAN Сергей DEXTER MD DR: NISREEN/maxx JOB#: [id number] / [id number]
--- NOTE | 2017-09-30 20:38 | PDOC ---
Exam Note: Percy Note: Please also refer to the separate dictated note~for this date of service dictated separately.~Patient seen individually. Discussed the patient with Nursing staff reviewed the chart.~Reviewed interim history and current functioning. Reviewed vital signs,~Labs/ Radiology~and current medications noted below. Continue current treatment with the changes noted in the dictated addendum note Assessment: Vital Signs: Vital Signs Date Time Temp Pulse Resp B/P (MAP) Pulse Ox O2 Delivery O2 Flow Rate FiO2 09/30/17 15:42 97.9 64 20 131/62 (85) 96 09/28/17 16:22 Room Air I&O Intake and Output 09/30/17 07:00 Intake Total 1060 ml Balance 1060 ml Intake Oral 1060 ml # Voids 1 Labs: Laboratory Tests Test 09/30/17 07:34 09/30/17 19:11 Glucose (Fingerstick) 125 mg/dL (70-99) H 294 mg/dL (70-99) H Current Medications: Meds: Current Medications Levothyroxine Sodium (Synthroid) 100 mcg DAILYAC PO Last administered on at 07:54; Start 09/19/17 at 07:30; Stop 09/24/17 at 16:59; Status DC Acetaminophen (Tylenol) 1,000 mg PRN Q6HRS PRN PO PAIN / TEMP Last administered on 09/30/17at 14:48; Start 09/18/17 at 20:00 Atorvastatin Calcium (Lipitor) 40 mg QHS PO Last administered on 09/29/17at 20: 26; Start 09/18/17 at 21:00 Citalopram Hydrobromide (CeleXA) 40 mg DAILY PO Last administered on 09/19/17at 08:31; Start 09/19/17 at 09:00; Stop 09/19/17 at 18:17; Status DC Fenofibrate (Tricor) 145 mg DAILY PO Last administered on 09/30/17at 09:02; Start 09/19/17 at 09:00 Glimepiride (Amaryl) 0.5 mg DAILY PO Last administered on 09/19/17at 08:32; Start 09/19/17 at 09:00; Stop 09/19/17 at 18:47; Status DC Hydrocortisone (Cortaid) 1 eron PRN BID PRN TP ECZEMA/DRY SKIN; Start 09/18/17 at 20:00 Loperamide HCl (Imodium) 2 mg PRN QID PRN PO DIARRHEA; Start 09/18/17 at 20:00 Multivitamins/ Calcium (Thera-M Plus) 1 tab DAILY PO Last administered on 09:02; Start 09/19/17 at 09:00 Psyllium Hydrophilic Mucilloid (Metamucil) 1 pkt DAILYWBKFT PO Last administered on 09/26/17at 08:13; Start 09/19/17 at 08:00; Stop 09/26/17 at 16:25 ; Status DC Tamsulosin HCl (Flomax) 0.4 mg QHS PO Last administered on 09/29/17 20:26; Start 09/18/17 at 21:00 Acetaminophen (Tylenol) 650 mg PRN Q6HRS PRN PO PAIN / TEMP; Start 09/18/17 at 19:15; Status UNV Multi-Ingredient Ointment (Analgesic [place]) 1 eron PRN QID PRN TP MUSCLE PAIN; Start 09/18/17 at 19:15 Al Hydroxide/Mg Hydroxide (Mylanta Plus Xs) 15 ml PRN AFTMEALHC PRN PO DYSPEPSIA; Start 09/18/17 at 19:15 Magnesium Hydroxide (Milk Of Magnesia) 2,400 mg PRN QHS PRN PO CONSTIPATION Last administered on 09/21/17at 14:55; Start 09/18/17 at 19:15 Olanzapine (ZyPREXA ZYDIS) 2.5 mg PRN Q2HR PRN PO PSYCHOSIS Last administered on 09/19/17at 15:29; Start 09/19/17 at 15:30 Sertraline HCl (Zoloft) 50 mg DAILYWBKFT PO Last administered on 09/24/17at 07: 54; Start 09/20/17 at 08:00; Stop 09/24/17 at 18:46; Status DC Quetiapine Fumarate (SEROquel) 25 mg QHS PO Last administered on 09/29/17 20: 26; Start 09/19/17 at 21:00 Magnesium Oxide (Magnesium Oxide) 400 mg TID PO Last administered on 09/30/17at 13:43; Start 09/19/17 at 21:00 Levothyroxine Sodium (Synthroid) 100 mcg DAILY06 PO Last administered on at 05:07; Start 09/25/17 at 06:00 Sertraline HCl (Zoloft) 75 mg DAILYWBKFT PO Last administered on 09/30/17at 09: 02; Start 09/25/17 at 08:00 Active Scripts Active Reported Multivitamins (Multivitamin) 1 Each Tablet 1 Tab PO DAILY LAST DOSE GIVEN: DATE: TIME: NEXT DOSE DUE: DATE: TIME: Metamucil Powder (Psyllium Seed (with Sugar)) 575 Gm Powder 5 Gm PO DAILYWBKFT LAST DOSE GIVEN: DATE: TIME: NEXT DOSE DUE: DATE: TIME: Loperamide (Loperamide Hcl) 2 Mg Tablet 2 Mg PO PRN QID PRN LAST DOSE GIVEN: DATE: TIME: NEXT DOSE DUE: DATE: TIME: Glimepiride 1 Mg Tablet 0.5 Mg PO DAILY LAST DOSE GIVEN: DATE: TIME: NEXT DOSE DUE: DATE: TIME: Cortizone-10 1% Creme (Hydrocortisone/Aloe Vera) 28 Gm Cream..g. 1 Eron TP BID PRN LAST DOSE GIVEN: DATE: TIME: NEXT DOSE DUE: DATE: TIME: Celexa (Citalopram Hydrobromide) 40 Mg Tablet 40 Mg PO DAILY LAST DOSE GIVEN: DATE: TIME: NEXT DOSE DUE: DATE: TIME: Levothyroxine Sodium 100 Mcg Tablet 100 Mcg PO DAILYAC LAST DOSE GIVEN: DATE: TIME: NEXT DOSE DUE: DATE: TIME: Fenofibrate (Fenofibrate,Micronized) 200 Mg Capsule 200 Mg PO DAILY08 LAST DOSE GIVEN: DATE: TIME: NEXT DOSE DUE: DATE: TIME: Atorvastatin Calcium 40 Mg Tablet 40 Mg PO HS LAST DOSE GIVEN: DATE: TIME: NEXT DOSE DUE: DATE: TIME: Acetaminophen 500 Mg Tablet 500-1,000 Mg PO PRN Q6HRS PRN LAST DOSE GIVEN: DATE: TIME: NEXT DOSE DUE: DATE: TIME: I have reviewed the current psychotropics carefully including drug interactions. Risk benefit ratio favors no change other than as noted in my dictated progress note. Diagnosis: Problems: (1) Hypomagnesemia (2) Acute kidney injury (3) Anxiety disorder (4) Major depressive disorder, recurrent episode (5) Impulse control disorder (6) Mild cognitive impairment YASMIN DEXTER MD September 30, 2017 20:38
[2017-09-30] MEDS: ATORVASTATIN CALCIUM 20 MG TABLET PO SCH (21:08)
[2017-09-30] MEDS: QUEtiapine 25 MG TABLET. PO SCH (21:08)
[2017-09-30] MEDS: TAMSULOSIN 0.4 MG CAP.ER.24H. PO SCH (21:08)
[2017-10-01 06:20] VITALS: BP 138/66
[2017-10-01] MEDS: LEVOTHYROXINE 100 MCG TABLET PO SCH (06:38)
[2017-10-01] MEDS: MAGNESIUM OXIDE 400 MG TABLET PO SCH ×3 (08:18→19:35)
[2017-10-01] MEDS: MULTIVITAMIN with MINERAL TABLET. PO SCH (08:18)
[2017-10-01] MEDS: FENOFIBRATE NANOCRYSTALLIZED 145 MG TABLET PO SCH (08:19)
[2017-10-01] MEDS: SERTRALINE 50 MG TABLET. PO SCH (08:20)
[2017-10-01] MEDS: ACETAMINOPHEN 500 MG TABLET PO PRN (12:25)
[2017-10-01] MEDS ORDERED: DEXTROSE 50% 25 GM / 50ML DISP.SYRIN. IV PRN (15:30)
[2017-10-01 16:14] VITALS: BP 136/73
[2017-10-01] MEDS: INSULIN LISPRO 300 UNITS/3 ML INSULN.PEN. SQ SCH (17:00)
[2017-10-01] MEDS: QUEtiapine 25 MG TABLET. PO SCH (19:35)
[2017-10-01] MEDS: ATORVASTATIN CALCIUM 20 MG TABLET PO SCH (19:35)
[2017-10-01] MEDS: TAMSULOSIN 0.4 MG CAP.ER.24H. PO SCH (19:36)
--- NOTE | 2017-10-01 20:42 | PDOC ---
Exam Note: Percy Note: Please also refer to the separate dictated note~for this date of service dictated separately.~Patient seen individually. Discussed the patient with Nursing staff reviewed the chart.~Reviewed interim history and current functioning. Reviewed vital signs,~Labs/ Radiology~and current medications noted below. Continue current treatment with the changes noted in the dictated addendum note Assessment: Vital Signs: Vital Signs Date Time Temp Pulse Resp B/P (MAP) Pulse Ox O2 Delivery O2 Flow Rate FiO2 10/01/17 16:14 97.6 65 16 136/73 (94) 96 09/28/17 16:22 Room Air I&O Intake and Output 10/01/17 07:00 Intake Total 1320 ml Balance 1320 ml Intake Oral 1320 ml # Bowel Movements 1 Labs: Laboratory Tests Test 10/01/17 07:23 10/01/17 16:38 10/01/17 19:31 Glucose (Fingerstick) 114 mg/dL (70-99) H 106 mg/dL (70-99) H 243 mg/dL (70-99) H Current Medications: Meds: Current Medications Levothyroxine Sodium (Synthroid) 100 mcg DAILYAC PO Last administered on at 07:54; Start 09/19/17 at 07:30; Stop 09/24/17 at 16:59; Status DC Acetaminophen (Tylenol) 1,000 mg PRN Q6HRS PRN PO PAIN / TEMP Last administered on 10/01/17at 12:25; Start 09/18/17 at 20:00 Atorvastatin Calcium (Lipitor) 40 mg QHS PO Last administered on 10/01/17at 19: 35; Start 09/18/17 at 21:00 Citalopram Hydrobromide (CeleXA) 40 mg DAILY PO Last administered on 09/19/17at 08:31; Start 09/19/17 at 09:00; Stop 09/19/17 at 18:17; Status DC Fenofibrate (Tricor) 145 mg DAILY PO Last administered on 10/01/17at 08:19; Start 09/19/17 at 09:00 Glimepiride (Amaryl) 0.5 mg DAILY PO Last administered on 09/19/17at 08:32; Start 09/19/17 at 09:00; Stop 09/19/17 at 18:47; Status DC Hydrocortisone (Cortaid) 1 eron PRN BID PRN TP ECZEMA/DRY SKIN; Start 09/18/17 at 20:00 Loperamide HCl (Imodium) 2 mg PRN QID PRN PO DIARRHEA; Start 09/18/17 at 20:00 Multivitamins/ Calcium (Thera-M Plus) 1 tab DAILY PO Last administered on 08:18; Start 09/19/17 at 09:00 Psyllium Hydrophilic Mucilloid (Metamucil) 1 pkt DAILYWBKFT PO Last administered on 09/26/17at 08:13; Start 09/19/17 at 08:00; Stop 09/26/17 at 16:25 ; Status DC Tamsulosin HCl (Flomax) 0.4 mg QHS PO Last administered on 10/01/17at 19:36; Start 09/18/17 at 21:00 Acetaminophen (Tylenol) 650 mg PRN Q6HRS PRN PO PAIN / TEMP; Start 09/18/17 at 19:15; Status UNV Multi-Ingredient Ointment (Analgesic [place]) 1 eron PRN QID PRN TP MUSCLE PAIN; Start 09/18/17 at 19:15 Al Hydroxide/Mg Hydroxide (Mylanta Plus Xs) 15 ml PRN AFTMEALHC PRN PO DYSPEPSIA; Start 09/18/17 at 19:15 Magnesium Hydroxide (Milk Of Magnesia) 2,400 mg PRN QHS PRN PO CONSTIPATION Last administered on 09/21/17at 14:55; Start 09/18/17 at 19:15 Olanzapine (ZyPREXA ZYDIS) 2.5 mg PRN Q2HR PRN PO PSYCHOSIS Last administered on 09/19/17at 15:29; Start 09/19/17 at 15:30 Sertraline HCl (Zoloft) 50 mg DAILYWBKFT PO Last administered on 09/24/17at 07: 54; Start 09/20/17 at 08:00; Stop 09/24/17 at 18:46; Status DC Quetiapine Fumarate (SEROquel) 25 mg QHS PO Last administered on 10/01/17 19: 35; Start 09/19/17 at 21:00 Magnesium Oxide (Magnesium Oxide) 400 mg TID PO Last administered on 5/29/18at 19:35; Start 09/19/17 at 21:00 Levothyroxine Sodium (Synthroid) 100 mcg DAILY06 PO Last administered on at 06:38; Start 09/25/17 at 06:00 Sertraline HCl (Zoloft) 75 mg DAILYWBKFT PO Last administered on 10/01/17at 08: 20; Start 09/25/17 at 08:00 Insulin Human Lispro (HumaLOG) 0-5 UNITS TIDWMEALS SQ ; Start 10/01/17 at 17:00 Dextrose 12.5 gm PRN Q15MIN PRN IV SEE COMMENTS; Start 10/01/17 at 15:30 Active Scripts Active Reported Multivitamins (Multivitamin) 1 Each Tablet 1 Tab PO DAILY LAST DOSE GIVEN: DATE: TIME: NEXT DOSE DUE: DATE: TIME: Metamucil Powder (Psyllium Seed (with Sugar)) 575 Gm Powder 5 Gm PO DAILYWBKFT LAST DOSE GIVEN: DATE: TIME: NEXT DOSE DUE: DATE: TIME: Loperamide (Loperamide Hcl) 2 Mg Tablet 2 Mg PO PRN QID PRN LAST DOSE GIVEN: DATE: TIME: NEXT DOSE DUE: DATE: TIME: Glimepiride 1 Mg Tablet 0.5 Mg PO DAILY LAST DOSE GIVEN: DATE: TIME: NEXT DOSE DUE: DATE: TIME: Cortizone-10 1% Creme (Hydrocortisone/Aloe Vera) 28 Gm Cream..g. 1 Eron TP BID PRN LAST DOSE GIVEN: DATE: TIME: NEXT DOSE DUE: DATE: TIME: Celexa (Citalopram Hydrobromide) 40 Mg Tablet 40 Mg PO DAILY LAST DOSE GIVEN: DATE: TIME: NEXT DOSE DUE: DATE: TIME: Levothyroxine Sodium 100 Mcg Tablet 100 Mcg PO DAILYAC LAST DOSE GIVEN: DATE: TIME: NEXT DOSE DUE: DATE: TIME: Fenofibrate (Fenofibrate,Micronized) 200 Mg Capsule 200 Mg PO DAILY08 LAST DOSE GIVEN: DATE: TIME: NEXT DOSE DUE: DATE: TIME: Atorvastatin Calcium 40 Mg Tablet 40 Mg PO HS LAST DOSE GIVEN: DATE: TIME: NEXT DOSE DUE: DATE: TIME: Acetaminophen 500 Mg Tablet 500-1,000 Mg PO PRN Q6HRS PRN LAST DOSE GIVEN: DATE: TIME: NEXT DOSE DUE: DATE: TIME: I have reviewed the current psychotropics carefully including drug interactions. Risk benefit ratio favors no change other than as noted in my dictated progress note. Diagnosis: Problems: (1) Hypomagnesemia (2) Acute kidney injury (3) Anxiety disorder (4) Major depressive disorder, recurrent episode (5) Impulse control disorder (6) Mild cognitive impairment YASMIN DEXTER MD October 01, 2017 20:42
[2017-10-02 06:20] VITALS: BP 137/57
[2017-10-02] MEDS: LEVOTHYROXINE 100 MCG TABLET PO SCH (06:20)
[2017-10-02] MEDS: FENOFIBRATE NANOCRYSTALLIZED 145 MG TABLET PO SCH (07:35)
[2017-10-02] MEDS: MAGNESIUM OXIDE 400 MG TABLET PO SCH ×3 (07:35→20:02)
[2017-10-02] MEDS: MULTIVITAMIN with MINERAL TABLET. PO SCH (07:35)
[2017-10-02] MEDS: SERTRALINE 50 MG TABLET. PO SCH (07:35)
[2017-10-02] MEDS: INSULIN LISPRO 300 UNITS/3 ML INSULN.PEN. SQ SCH ×3 (07:52→16:31)
--- NOTE | 2017-10-02 11:11 | PN ---
DATE: 09/30/2017 PSYCHIATRIC PROGRESS NOTE This is a late entry 09/30/2017, covers elements not covered in my initial note 09/30/2017. SUBJECTIVE: I met with the patient in the evening. The patient slept 6 hours previous evening. Appetite somewhat better, compliant, cooperative. REVIEW OF SYSTEMS: Ambulation impaired, in wheelchair. No CV, , pulmonary, eye system symptoms on review. MENTAL STATUS EXAM: Oriented to himself and situation. Speech moderate latency, often responses monosyllabic. Abstraction fair, computation impaired, language function intact. Mood and affect somewhat dysphoric, but improved. LABORATORY DATA: Reviewed. IMPRESSION: Unchanged from initial note. PLAN: Continue current psychotropics, Zoloft was increased and he is tolerating this together with the Seroquel. May adjust further as clinically indicated. MAN Сергей DEXTER MD DR: NISREEN/maxx JOB#: [id number] / [id number]
--- NOTE | 2017-10-02 11:14 | PN ---
DATE: 09/29/2017 This late entry, 09/29/2017, covers elements not covered in my initial note of 09/29/2017. SUBJECTIVE: I met with the patient in the evening. The patient slept 6 hours previous evening. Overall, his appetite is better, little more interactive, still withdrawn at times. REVIEW OF SYSTEMS: Ambulation impaired, in wheelchair. No CV, , pulmonary, eye system symptoms on review. Complains of some discomfort on his bottom area. Nursing staffs are turning him every 2 hours. MENTAL STATUS EXAM: Oriented to himself and situation. Speech has some latency, low in volume, coherent, often responses monosyllabic. Abstraction fair, computation impaired, language function intact, attention span short. Mood and affect still somewhat dysphoric, anxious, but improved. LABORATORY DATA: Reviewed. IMPRESSION: Unchanged from initial note. PLAN: Continue psychotropics mentioned in my initial note. YASMIN DEXTER MD DR: NISREEN/maxx JOB#: [id number] / [id number]
[2017-10-02 16:10] VITALS: BP 120/51
[2017-10-02] MEDS: ATORVASTATIN CALCIUM 20 MG TABLET PO SCH (20:02)
[2017-10-02] MEDS: QUEtiapine 25 MG TABLET. PO SCH (20:02)
[2017-10-02] MEDS: TAMSULOSIN 0.4 MG CAP.ER.24H. PO SCH (20:02)
--- NOTE | 2017-10-02 20:56 | PDOC ---
Exam Note: Percy Note: Please also refer to the separate dictated note~for this date of service dictated separately.~Patient seen individually. Discussed the patient with Nursing staff reviewed the chart.~Reviewed interim history and current functioning. Reviewed vital signs,~Labs/ Radiology~and current medications noted below. Continue current treatment with the changes noted in the dictated addendum note Assessment: Vital Signs: Vital Signs Date Time Temp Pulse Resp B/P (MAP) Pulse Ox O2 Delivery O2 Flow Rate FiO2 10/02/17 16:10 97.6 78 18 120/51 (74) 100 Room Air I&O Intake and Output 10/02/17 07:00 Intake Total 1700 ml Balance 1700 ml Intake Oral 1700 ml # Bowel Movements 1 Labs: Laboratory Tests Test 10/02/17 07:24 10/02/17 11:13 10/02/17 16:13 10/02/17 19:18 Glucose (Fingerstick) 119 mg/dL (70-99) H 146 mg/dL (70-99) H 152 mg/dL (70-99) H 264 mg/dL (70-99) H Current Medications: Meds: Current Medications Levothyroxine Sodium (Synthroid) 100 mcg DAILYAC PO Last administered on at 07:54; Start 09/19/17 at 07:30; Stop 09/24/17 at 16:59; Status DC Acetaminophen (Tylenol) 1,000 mg PRN Q6HRS PRN PO PAIN / TEMP Last administered on 10/01/17at 12:25; Start 09/18/17 at 20:00 Atorvastatin Calcium (Lipitor) 40 mg QHS PO Last administered on 10/02/17at 20: 02; Start 09/18/17 at 21:00 Citalopram Hydrobromide (CeleXA) 40 mg DAILY PO Last administered on 09/19/17at 08:31; Start 09/19/17 at 09:00; Stop 09/19/17 at 18:17; Status DC Fenofibrate (Tricor) 145 mg DAILY PO Last administered on 10/02/17at 07:35; Start 09/19/17 at 09:00 Glimepiride (Amaryl) 0.5 mg DAILY PO Last administered on 09/19/17at 08:32; Start 09/19/17 at 09:00; Stop 09/19/17 at 18:47; Status DC Hydrocortisone (Cortaid) 1 eron PRN BID PRN TP ECZEMA/DRY SKIN; Start 09/18/17 at 20:00 Loperamide HCl (Imodium) 2 mg PRN QID PRN PO DIARRHEA; Start 09/18/17 at 20:00 Multivitamins/ Calcium (Thera-M Plus) 1 tab DAILY PO Last administered on at 07:35; Start 09/19/17 at 09:00 Psyllium Hydrophilic Mucilloid (Metamucil) 1 pkt DAILYWBKFT PO Last administered on 09/26/17at 08:13; Start 09/19/17 at 08:00; Stop 09/26/17 at 16:25 ; Status DC Tamsulosin HCl (Flomax) 0.4 mg QHS PO Last administered on 10/02/17 20:02; Start 09/18/17 at 21:00 Acetaminophen (Tylenol) 650 mg PRN Q6HRS PRN PO PAIN / TEMP; Start 09/18/17 at 19:15; Status UNV Multi-Ingredient Ointment (Analgesic [place]) 1 eron PRN QID PRN TP MUSCLE PAIN; Start 09/18/17 at 19:15 Al Hydroxide/Mg Hydroxide (Mylanta Plus Xs) 15 ml PRN AFTMEALHC PRN PO DYSPEPSIA; Start 09/18/17 at 19:15 Magnesium Hydroxide (Milk Of Magnesia) 2,400 mg PRN QHS PRN PO CONSTIPATION Last administered on 09/21/17at 14:55; Start 09/18/17 at 19:15 Olanzapine (ZyPREXA ZYDIS) 2.5 mg PRN Q2HR PRN PO PSYCHOSIS Last administered on 09/19/17at 15:29; Start 09/19/17 at 15:30 Sertraline HCl (Zoloft) 50 mg DAILYWBKFT PO Last administered on 09/24/17at 07: 54; Start 09/20/17 at 08:00; Stop 09/24/17 at 18:46; Status DC Quetiapine Fumarate (SEROquel) 25 mg QHS PO Last administered on 10/02/17at 20: 02; Start 09/19/17 at 21:00 Magnesium Oxide (Magnesium Oxide) 400 mg TID PO Last administered on 10/02/17at 20:02; Start 09/19/17 at 21:00 Levothyroxine Sodium (Synthroid) 100 mcg DAILY06 PO Last administered on at 06:20; Start 09/25/17 at 06:00 Sertraline HCl (Zoloft) 75 mg DAILYWBKFT PO Last administered on 10/02/17at 07: 35; Start 09/25/17 at 08:00 Insulin Human Lispro (HumaLOG) 0-5 UNITS TIDWMEALS SQ ; Start 10/01/17 at 17:00 Dextrose 12.5 gm PRN Q15MIN PRN IV SEE COMMENTS; Start 10/01/17 at 15:30 Active Scripts Active Reported Multivitamins (Multivitamin) 1 Each Tablet 1 Tab PO DAILY LAST DOSE GIVEN: DATE: TIME: NEXT DOSE DUE: DATE: TIME: Metamucil Powder (Psyllium Seed (with Sugar)) 575 Gm Powder 5 Gm PO DAILYWBKFT LAST DOSE GIVEN: DATE: TIME: NEXT DOSE DUE: DATE: TIME: Loperamide (Loperamide Hcl) 2 Mg Tablet 2 Mg PO PRN QID PRN LAST DOSE GIVEN: DATE: TIME: NEXT DOSE DUE: DATE: TIME: Glimepiride 1 Mg Tablet 0.5 Mg PO DAILY LAST DOSE GIVEN: DATE: TIME: NEXT DOSE DUE: DATE: TIME: Cortizone-10 1% Creme (Hydrocortisone/Aloe Vera) 28 Gm Cream..g. 1 Eron TP BID PRN LAST DOSE GIVEN: DATE: TIME: NEXT DOSE DUE: DATE: TIME: Celexa (Citalopram Hydrobromide) 40 Mg Tablet 40 Mg PO DAILY LAST DOSE GIVEN: DATE: TIME: NEXT DOSE DUE: DATE: TIME: Levothyroxine Sodium 100 Mcg Tablet 100 Mcg PO DAILYAC LAST DOSE GIVEN: DATE: TIME: NEXT DOSE DUE: DATE: TIME: Fenofibrate (Fenofibrate,Micronized) 200 Mg Capsule 200 Mg PO DAILY08 LAST DOSE GIVEN: DATE: TIME: NEXT DOSE DUE: DATE: TIME: Atorvastatin Calcium 40 Mg Tablet 40 Mg PO HS LAST DOSE GIVEN: DATE: TIME: NEXT DOSE DUE: DATE: TIME: Acetaminophen 500 Mg Tablet 500-1,000 Mg PO PRN Q6HRS PRN LAST DOSE GIVEN: DATE: TIME: NEXT DOSE DUE: DATE: TIME: I have reviewed the current psychotropics carefully including drug interactions. Risk benefit ratio favors no change other than as noted in my dictated progress note. Diagnosis: Problems: (1) Hypomagnesemia (2) Acute kidney injury (3) Anxiety disorder (4) Major depressive disorder, recurrent episode (5) Impulse control disorder (6) Mild cognitive impairment YASMIN DEXTER MD October 02, 2017 20:56
--- NOTE | 2017-10-03 03:02 | PN ---
DATE: 10/01/2017 This is a late entry, 10/01/2017, covers the elements not covered in my initial note, 10/01/2017. SUBJECTIVE: I met with the patient in the evening. Overall, the patient still remains somewhat withdrawn, but appetite is better. Mood is improved. REVIEW OF SYSTEMS: Ambulation impaired, in wheelchair. No CV, , pulmonary, eye, ENT system symptoms on review. MENTAL STATUS EXAM: Reasonably oriented. Speech has some latency, coherent. Abstraction fair, computation impaired, language function intact. Mood and affect is improved, less depressed. LABORATORY DATA: Reviewed. IMPRESSION: Unchanged from initial note. PLAN: Continue psychotropics from the initial note. MAN Сергей DEXTER MD DR: NISREEN/maxx JOB#: [id number] / [id number]
[2017-10-03] MEDS ORDERED: INSU100I11 SQ (04:16)
[2017-10-03] MEDS ORDERED: MAG355OR17 PO (04:17)
[2017-10-03] MEDS ORDERED: MAGN2400 PO (04:17)
[2017-10-03] MEDS ORDERED: METH29OI TP (04:18)
[2017-10-03] MEDS ORDERED: MAGN400T3 PO (04:18)
[2017-10-03] MEDS ORDERED: OLAN5TAB5 PO (04:19)
[2017-10-03] MEDS ORDERED: QUET25TA5 PO (04:19)
[2017-10-03] MEDS ORDERED: TAMS0.4C2 PO (04:20)
[2017-10-03] MEDS ORDERED: SERT50TA PO (04:20)
[2017-10-03] MEDS: LEVOTHYROXINE 100 MCG TABLET PO SCH (06:02)
[2017-10-03 06:13] VITALS: BP 154/66
[2017-10-03] MEDS: INSULIN LISPRO 300 UNITS/3 ML INSULN.PEN. SQ SCH (08:00)
[2017-10-03] MEDS: MULTIVITAMIN with MINERAL TABLET. PO SCH (08:19)
[2017-10-03] MEDS: MAGNESIUM OXIDE 400 MG TABLET PO SCH (08:19)
[2017-10-03] MEDS: SERTRALINE 50 MG TABLET. PO SCH (08:19)
[2017-10-03] MEDS: FENOFIBRATE NANOCRYSTALLIZED 145 MG TABLET PO SCH (08:19)
--- NOTE | 2017-10-03 20:27 | PDOC ---
Exam Note: Percy Note: Please also refer to the separate dictated note~for this date of service dictated separately.~Patient seen individually. Discussed the patient with Nursing staff reviewed the chart.~Reviewed interim history and current functioning. Reviewed vital signs,~Labs/ Radiology~and current medications noted below. Continue current treatment with the changes noted in the dictated addendum note Assessment: Vital Signs: Vital Signs Date Time Temp Pulse Resp B/P (MAP) Pulse Ox O2 Delivery O2 Flow Rate FiO2 10/03/17 06:13 97.9 69 16 154/66 (95) 94 10/02/17 16:10 Room Air I&O Intake and Output 10/03/17 07:00 Intake Total 1320 ml Balance 1320 ml Intake Oral 1320 ml # Voids 1 # Bowel Movements 1 Labs: Laboratory Tests Test 10/03/17 07:30 Glucose (Fingerstick) 127 mg/dL (70-99) H Current Medications: Meds: Current Medications Levothyroxine Sodium (Synthroid) 100 mcg DAILYAC PO Last administered on at 07:54; Start 09/19/17 at 07:30; Stop 09/24/17 at 16:59; Status DC Acetaminophen (Tylenol) 1,000 mg PRN Q6HRS PRN PO PAIN / TEMP Last administered on 10/01/17at 12:25; Start 09/18/17 at 20:00; Stop 10/03/17 at 13:06 ; Status DC Atorvastatin Calcium (Lipitor) 40 mg QHS PO Last administered on 10/02/17at 20: 02; Start 09/18/17 at 21:00; Stop 10/03/17 at 13:06; Status DC Citalopram Hydrobromide (CeleXA) 40 mg DAILY PO Last administered on 09/19/17at 08:31; Start 09/19/17 at 09:00; Stop 09/19/17 at 18:17; Status DC Fenofibrate (Tricor) 145 mg DAILY PO Last administered on 10/03/17at 08:19; Start 09/19/17 at 09:00; Stop 10/03/17 at 13:06; Status DC Glimepiride (Amaryl) 0.5 mg DAILY PO Last administered on 09/19/17at 08:32; Start 09/19/17 at 09:00; Stop 09/19/17 at 18:47; Status DC Hydrocortisone (Cortaid) 1 eron PRN BID PRN TP ECZEMA/DRY SKIN; Start 09/18/17 at 20:00; Stop 10/03/17 at 13:06; Status DC Loperamide HCl (Imodium) 2 mg PRN QID PRN PO DIARRHEA; Start 09/18/17 at 20:00 ; Stop 10/03/17 at 13:06; Status DC Multivitamins/ Calcium (Thera-M Plus) 1 tab DAILY PO Last administered on at 08:19; Start 09/19/17 at 09:00; Stop 10/03/17 at 13:06; Status DC Psyllium Hydrophilic Mucilloid (Metamucil) 1 pkt DAILYWBKFT PO Last administered on 09/26/17at 08:13; Start 09/19/17 at 08:00; Stop 09/26/17 at 16:25 ; Status DC Tamsulosin HCl (Flomax) 0.4 mg QHS PO Last administered on 10/02/17at 20:02; Start 09/18/17 at 21:00; Stop 10/03/17 at 13:06; Status DC Acetaminophen (Tylenol) 650 mg PRN Q6HRS PRN PO PAIN / TEMP; Start 09/18/17 at 19:15; Status UNV Multi-Ingredient Ointment (Analgesic [place]) 1 eron PRN QID PRN TP MUSCLE PAIN; Start 09/18/17 at 19:15; Stop 10/03/17 at 13:06; Status DC Al Hydroxide/Mg Hydroxide (Mylanta Plus Xs) 15 ml PRN AFTMEALHC PRN PO DYSPEPSIA; Start 09/18/17 at 19:15; Stop 10/03/17 at 13:06; Status DC Magnesium Hydroxide (Milk Of Magnesia) 2,400 mg PRN QHS PRN PO CONSTIPATION Last administered on 09/21/17at 14:55; Start 09/18/17 at 19:15; Stop 10/03/17 at 13:06; Status DC Olanzapine (ZyPREXA ZYDIS) 2.5 mg PRN Q2HR PRN PO PSYCHOSIS Last administered on 09/19/17at 15:29; Start 09/19/17 at 15:30; Stop 10/03/17 at 13:06; Status DC Sertraline HCl (Zoloft) 50 mg DAILYWBKFT PO Last administered on 09/24/17at 07: 54; Start 09/20/17 at 08:00; Stop 09/24/17 at 18:46; Status DC Quetiapine Fumarate (SEROquel) 25 mg QHS PO Last administered on 10/02/17at 20: 02; Start 09/19/17 at 21:00; Stop 10/03/17 at 13:06; Status DC Magnesium Oxide (Magnesium Oxide) 400 mg TID PO Last administered on 10/03/17at 08:19; Start 09/19/17 at 21:00; Stop 10/03/17 at 13:06; Status DC Levothyroxine Sodium (Synthroid) 100 mcg DAILY06 PO Last administered on at 06:02; Start 09/25/17 at 06:00; Stop 10/03/17 at 13:06; Status DC Sertraline HCl (Zoloft) 75 mg DAILYWBKFT PO Last administered on 10/03/17at 08: 19; Start 09/25/17 at 08:00; Stop 10/03/17 at 13:06; Status DC Insulin Human Lispro (HumaLOG) 0-5 UNITS TIDWMEALS SQ ; Start 10/01/17 at 17:00 ; Stop 10/03/17 at 13:06; Status DC Dextrose 12.5 gm PRN Q15MIN PRN IV SEE COMMENTS; Start 10/01/17 at 15:30; Stop 10/03/17 at 13:06; Status DC Active Scripts Active Reported Tamsulosin Hcl 0.4 Mg Cap.er.24h 0.4 Mg PO QHS Zoloft (Sertraline Hcl) 50 Mg Tablet 75 Mg PO DAILYWBKFT Seroquel (Quetiapine Fumarate) 25 Mg Tablet 25 Mg PO QHS Zyprexa Zydis (Olanzapine) 5 Mg Tab.rapdis 2.5 Mg PO PRN Q2HR PRN Analgesic [place] (Methyl Salicylate/Menthol) 28 Gm Oint...g. 1 Eron TP PRN QID PRN Magnesium Oxide 400 Mg Tablet 400 Mg PO TID Milk Of Magnesia (Magnesium Hydroxide) 2,400 Mg/10 Ml Oral.susp 2,400 Mg PO PRN QHS PRN Advanced Antacid Liquid (Mag Hydrox/Al Hydrox/Simeth) 355 Ml Oral.susp 15 Ml PO PRN AFTMEALHC PRN Humalog (Insulin Lispro) 100 Unit/1 Ml Insuln.pen 0-5 Unit SQ TIDWMEALS BG< 70 Follow Hypoglycemia Protocol BG 70-150= 0 units BG 151-200= 2 units if eating; 0 units if not eating or HS BG 201-250= 3 units if eating; 0 units if not eating or HS BG 251-300= 4 units if eating; 2 units if not eating or HS BG 301-350= 5 units if eating; 3 units if not eating or HS BG > 351= call physician for orders Multivitamins (Multivitamin) 1 Each Tablet 1 Tab PO DAILY LAST DOSE GIVEN: DATE: TIME: NEXT DOSE DUE: DATE: TIME: Loperamide (Loperamide Hcl) 2 Mg Tablet 2 Mg PO PRN QID PRN LAST DOSE GIVEN: DATE: TIME: NEXT DOSE DUE: DATE: TIME: Cortizone-10 1% Creme (Hydrocortisone/Aloe Vera) 28 Gm Cream..g. 1 Eron TP BID PRN LAST DOSE GIVEN: DATE: TIME: NEXT DOSE DUE: DATE: TIME: Levothyroxine Sodium 100 Mcg Tablet 100 Mcg PO DAILYAC LAST DOSE GIVEN: DATE: TIME: NEXT DOSE DUE: DATE: TIME: Fenofibrate (Fenofibrate,Micronized) 200 Mg Capsule 200 Mg PO DAILY08 LAST DOSE GIVEN: DATE: TIME: NEXT DOSE DUE: DATE: TIME: Atorvastatin Calcium 40 Mg Tablet 40 Mg PO HS LAST DOSE GIVEN: DATE: TIME: NEXT DOSE DUE: DATE: TIME: Acetaminophen 500 Mg Tablet 500-1,000 Mg PO PRN Q6HRS PRN LAST DOSE GIVEN: DATE: TIME: NEXT DOSE DUE: DATE: TIME: I have reviewed the current psychotropics carefully including drug interactions. Risk benefit ratio favors no change other than as noted in my dictated progress note. Diagnosis: Problems: (1) Hypomagnesemia (2) Acute kidney injury (3) Anxiety disorder (4) Major depressive disorder, recurrent episode (5) Impulse control disorder (6) Mild cognitive impairment YASMIN DEXTER MD October 03, 2017 20:27
--- NOTE | 2017-10-04 22:53 | DS ---
DATE OF DISCHARGE: 10/03/2017 DISCHARGE SUMMARY/PSYCHIATRIC PROGRESS NOTE This late entry, date of service, 10/03/2017, covers elements, not covered in my initial note of 10/03/2017. REASON FOR ADMISSION: Please refer to the admission history for details. HISTORY OF PRESENT ILLNESS: Briefly, the patient is an 82-year-old male initially referred to us from [facility] on account of worsening symptoms of depression, refusal to eat, 25 pounds weight loss in 9 months, feeling hopeless and worthless. He presented to our Emergency Room, was on the medical/surgical floor for medical stabilization. He continued to be depressed and then transferred to the [facility]. SIGNIFICANT FINDINGS AND CLINICAL COURSE: Following admission, the patient was seen daily individually by myself from a psychiatric standpoint, medical followup with Dr. Vanessa/Dr. Webber. Initially, remained depressed, withdrawn, isolative with poor appetite. Adjustments were made in the psychotropics. He seemed to respond to a combination of Zoloft 75 mg a day, Seroquel 25 mg at bedtime, Zyprexa p.r.n. Gradually, mood appeared to improve, appetite improved. He was gaining some weight, still appeared depressed at times, but better. No suicidal or homicidal ideation at discharge. CONDITION AT DISCHARGE: Improved. REVIEW OF SYSTEMS: Prior to discharge on 10/03/2017, ambulation impaired, in wheelchair. No CV, , pulmonary, eye, ENT system symptoms on review. MENTAL STATUS EXAM: Oriented to himself and situation. Speech is coherent, has some latency. Abstraction fair, computation impaired, language function intact, attention span short. Mood and affect improved. LABORATORY DATA: Reviewed. FINAL DIAGNOSES: Major depressive disorder, recurrent, in partial remission; anxiety disorder, unspecified. Rest unchanged from admission. DISCHARGE MEDICATIONS: Please refer to the [facility]AD. DISCHARGE INSTRUCTIONS: Outpatient psychiatric and medical followup at the facility he was discharged to. YASMIN DEXTER MD DR: NISREEN/maxx JOB#: [id number] / [id number]
--- NOTE | 2017-10-05 01:06 | PN ---
DATE: 10/02/2017 This late entry 10/02/2017 covers elements not covered in my initial note 10/02/2017. SUBJECTIVE: I met with the patient in the evening. The patient slept 7-1/2 hours. Appetite is better and he is slowly gaining some weight. He refused physical therapy. He has talked about his ongoing symptoms of depression, states his "self confidence has gone since the fall." He is otherwise pleasant, incontinent x 1. REVIEW OF SYSTEMS: Ambulation impaired, in wheelchair. No CV, , pulmonary, eye, ENT system symptoms on review. MENTAL STATUS EXAM: Oriented reasonably. Speech is coherent, has some latency. Abstraction fair, computation impaired, language function intact, attention span short. Mood and affect despite the above is improved. LABORATORY DATA: Reviewed. IMPRESSION: Major depressive disorder in partial remission. PLAN: Continue psychotropics mentioned in my initial note. Discharged 10/03/2017. MAN Сергей DEXTER MD DR: NISREEN/maxx JOB#: [id number] / [id number]
== END 2017-10-03 10:00 | DRG 885 ==
LOC: GEROPSY 18:05
PROVIDERS: ADMIT Psychiatry & Neurology Psychiatry; ATTEND Psychiatry & Neurology Psychiatry
DX: F33.3 Major depressive disorder, recurrent, severe with psychotic symptoms (principal); N17.9 Acute kidney failure, unspecified; E11.22 Type 2 diabetes mellitus with diabetic chronic kidney disease; E11.40 Type 2 diabetes mellitus with diabetic neuropathy, unspecified; F33.9 Major depressive disorder, recurrent, unspecified; E03.9 Hypothyroidism, unspecified; E11.649 Type 2 diabetes mellitus with hypoglycemia without coma; E78.5 Hyperlipidemia, unspecified; E83.42 Hypomagnesemia; F09 Unspecified mental disorder due to known physiological condition; F41.0 Panic disorder [episodic paroxysmal anxiety]; F42.9 Obsessive-compulsive disorder, unspecified; F63.9 Impulse disorder, unspecified; G31.84 Mild cognitive impairment of uncertain or unknown etiology; I12.9 Hypertensive chronic kidney disease with stage 1 through stage 4 chronic kidney disease, or unspecified chronic kidney disease; I25.10 Atherosclerotic heart disease of native coronary artery without angina pectoris; N18.9 Chronic kidney disease, unspecified; N40.0 Benign prostatic hyperplasia without lower urinary tract symptoms; K59.09 Other constipation; M19.90 Unspecified osteoarthritis, unspecified site; Z53.20 Procedure and treatment not carried out because of patient's decision for unspecified reasons; Z66 Do not resuscitate; Z79.899 Other long term (current) drug therapy; Z91.81 History of falling; Z88.8 Allergy status to other drugs, medicaments and biological substances
CPT/HCPCS: 36415; 70450; 80053; 80061; 81001; 82947; 83735; 84436; 84443; 84480; 85025; 86593; J1815; 97110; 97116; 97530; 97535